=== PATIENT | female | born 1955 | race Caucasian/White ===

== ENCOUNTER → 2018-02-05 | Outpatient (CLI) | payer OTHER ==
--- NOTE | 2018-02-05 19:28 | CT ---
EXAMINATION TYPE: CT ChestAbdPelvis w con DATE OF EXAM: 02/05/2018 COMPARISON: NONE HISTORY: Weight loss and changes with WBC CT DLP: 420.2 mGycm Automated exposure control for dose reduction was used. CONTRAST: CT scan of the chest, abdomen and pelvis is performed with Oral Contrast and with IV Contrast, patien t injected with 87 mL of Isovue 300. FINDINGS: There is diffuse pulmonary emphysema. Heart size is normal. There is no mediastinal adenopathy. There are no hilar masses. There is no evidence of pleural effusion. There is no evidence of a pulmonary m ass. There is no pericardial effusion. Liver spleen pancreas gallbladder appear normal. Bile ducts are not dilated. There is no adrenal mass. Kidneys show satisfactory contrast opacification. There is no hydronephrosi s. I see no intestinal wall thickening. There are no dilated loops. Bladder appears normal. There is no retroperitoneal adenopathy. There is no sign of ascites. Abdominal aorta is atheromatous. I see no bony destructive process. There is bilateral L5 spondylolysis with a mild first-degree L5-S1 spondyl olisthesis. I see no compression fracture. Uterus is retroverted. IMPRESSION: Diffuse moderately severe pulmonary emphysema. Spondylolysis of L5 with mild first-degree L5-S1 spondylolisthesis. Negative CT scan of the abdomen and pelvis. Atherosclerotic vascular disease.
== END | disposition home or self-care (01) ==
LOC: RADCTMAIN 16:00
DX: J43.9 Emphysema, unspecified (principal); I25.10 Atherosclerotic heart disease of native coronary artery without angina pectoris
CPT/HCPCS: 71260; 74177; Q9967

== ENCOUNTER → 2019-05-21 | Outpatient (CLI) | payer OTHER ==
--- NOTE | 2019-05-21 16:30 | XR ---
Bilateral hands and bilateral wrists HISTORY: Pain 3 views of each hand and 4 views of each wrist submitted. Chondrocalcinosis is present in the bilateral wrists. Some remodeling present at the radiocarpal join ts. Alignment is maintained. Bone mineralization is reduced. No fracture or dislocation. 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
== END | disposition home or self-care (01) ==
LOC: RADXRMAIN 15:47
PROVIDERS: ATTEND Emergency Medicine
DX: M25.532 Pain in left wrist (principal); M25.531 Pain in right wrist; M79.642 Pain in left hand

== ENCOUNTER → 2021-03-14 | Outpatient (CLI) | payer MEDICARE, OTHER ==
--- NOTE | 2021-03-14 09:38 | CTL ---
EXAMINATION TYPE: CT Low Dose Lung DATE OF EXAM ORDERED: 03/14/2021 HISTORY: CT 2018. Lung cancer screening CT DLP: 31.[address] CTDI: 1.0 mGy Automated exposure control for dose reduction was used. SCREENING VISIT: Baseline COMPARISON: CT 2018 TECHNIQUE: Low dose computed tomography scan was performed through the chest at 1 mm thick sections a nd reconstructed images in the coronal plane at [address] DIAGNOSTIC QUALITY: Satisfactory FINDINGS: LUNG NODULES: None. LUNGS: COPD: Severity: Moderate to borderline severe underlying emphysematous change. Fibrosis: Severity: None Lymph nodes: None. Other findings: None RIGHT PLEURAL SPACE: Effusion: None Calcification: None Thickening: None Pneumothorax: None LEFT PLEURAL SPACE: Effusion: None Calcification: None Thickening: None Pneumothorax: None HEART: Heart Size: Normal Coronary calcification: Moderate to severe Pericardial effusion: None OTHER FINDINGS: Upper abdomen: None Bony thorax: Exaggerated curvature with mild spurring. Supraclavicular region: None Other: None IMPRESSION: Emphysematous change redemonstrated. No new nodules. CT LUNG RAD AND CT CHEST RECOMMENDATION: Lung-Rad 1 Negative: Continue annual screening with LDCT in 12 months. S Modifier (other clinically significant findings): S Fairly severe coronary artery calcification should be correlated with additional cardiac risk factors .
== END | disposition home or self-care (01) ==
LOC: RADCTMAIN 08:16
DX: Z12.2 Encounter for screening for malignant neoplasm of respiratory organs (principal); J43.9 Emphysema, unspecified
CPT/HCPCS: 71271

== ENCOUNTER 2021-04-24 13:09 | Observation (INO) | payer MEDICARE, OTHER ==
[2021-04-24] MEDS ORDERED: SODIUM CHLORIDE 0.9% 500 ML 500 ML IV STA (14:52)
--- NOTE | 2021-04-24 15:06 | ED ---
Weakness HPI - General Chief complaint: Weakness Stated complaint: weakness, neausea Source: patient, family, RN notes reviewed, old records reviewed Mode of arrival: ambulatory Limitations: no limitations - History of Present Illness Initial comments: 65-year-old white female, alert and oriented 4, presents to the emergency room with complaints of generalized weakness for the past week. Patient states that she had a low-dose CT in February 2021 which showed severe coronary artery calcifications. Patient denies any chest pain or shortness of breath but does state that she has COPD and has had increasing weakness over the past week. Patient states that she did have some chest tightness with her weakness Saturday but here for worsening shortness of breath over the past couple of days. She denies fevers, no change in sputum production or color. Patient states she is a half pack a day smoker but waste smokes. Complaint: generalized weakness -: week(s) (1) Location: generalized Severity scale (1-10): 0 Associated Symptoms: denies other symptoms - Related Data Allergies Allergy/AdvReac Type Severity Reaction Status Date / Time No Known Allergies Allergy Verified 04/24/21 13:48 Review of Systems ROS Statement: Those systems with pertinent positive or pertinent negative responses have been documented in the HPI. ROS Other: All systems not noted in ROS Statement are negative. Past Medical History Past Medical History: COPD, Hyperlipidemia, Hypertension History of Any Multi-Drug Resistant Organisms: None Reported Past Surgical History: Breast Surgery Past Psychological History: No Psychological Hx Reported Smoking Status: Current every day smoker Past Alcohol Use History: None Reported Past Drug Use History: None Reported General Exam Limitations: no limitations General appearance: alert, in no apparent distress Head exam: Present: atraumatic, normocephalic, normal inspection Eye exam: Present: normal appearance, PERRL, EOMI. Absent: scleral icterus, conjunctival injection, periorbital swelling ENT exam: Present: normal exam, mucous membranes moist Neck exam: Present: normal inspection, full ROM. Absent: tenderness, meningismus, lymphadenopathy, thyromegaly Respiratory exam: Present: normal lung sounds bilaterally, wheezes. Absent: respiratory distress, rales, rhonchi, stridor, chest wall tenderness, accessory muscle use Cardiovascular Exam: Present: regular rate, normal rhythm, normal heart sounds. Absent: systolic murmur, diastolic murmur, rubs, gallop, clicks GI/Abdominal exam: Present: soft, normal bowel sounds. Absent: distended, tenderness, guarding, rebound, rigid Extremities exam: Present: normal inspection, full ROM, normal capillary refill. Absent: tenderness, pedal edema, joint swelling, calf tenderness Back exam: Present: normal inspection, full ROM. Absent: tenderness, CVA tenderness (R), CVA tenderness (L), muscle spasm, paraspinal tenderness, vertebral tenderness Neurological exam: Present: alert, oriented X3, CN II-XII intact Psychiatric exam: Present: normal affect, normal mood Skin exam: Present: warm, dry, intact, normal color. Absent: rash, cyanosis, diaphoretic, erythema, petechiae, pallor, mottled Course Vital Signs 04/24/21 04/24/21 04/24/21 13:48 14:35 14:47 Temperature 97.9 F Pulse Rate 94 85 Pulse Rate [ 80 Bilateral Supine Radial] Respiratory 18 18 18 Rate Blood Pressure 104/60 123/70 O2 Sat by Pulse 94 L 91 L Oximetry 04/24/21 16:40 Temperature Pulse Rate 80 Pulse Rate [ Bilateral Supine Radial] Respiratory 18 Rate Blood Pressure 115/64 O2 Sat by Pulse 96 Oximetry EKG Findings - EKG Results: EKG: sinus rhythm (Ventricular rate of 82, KS interval of 0.110, QRS of 0.88, QTc of 0.425; no old EKG available) Medical Decision Making - Medical Decision Making Patient having generalized weakness for the past week worse over the past 2 days. Patient did say that she had some chest tightness on Saturday. Chest x-ray shows COPD but no infiltrates, no pleural effusion and no pneumothorax. WBC count is 10, troponin is negative at 0.012, magnesium is 2.5. EKG shows no ST elevation. UA shows urinary tract infection and patient was given a gram of Rocephin IV push. Patient is agreeable to staying for continued evaluation of her chest tightness and overall weakness. Case to discussed with Dr. Ash. Dr. Munoz notified of admission and will also consult cardiology.. Patient agreeable to admission - Lab Data Result diagrams: 04/24/21 15:06 04/24/21 15:06 Lab Results 04/24/21 04/24/21 04/24/21 Range/Units 15:06 15:06 15:06 WBC 10.0 (3.8-10.6) k/uL RBC 4.38 (3.80-5.40) m/uL Hgb 13.4 (11.4-16.0) gm/dL Hct 41.3 (34.0-46.0) % MCV 94.3 (80.0-100.0) fL MCH 30.7 (25.0-35.0) pg MCHC 32.5 (31.0-37.0) g/dL RDW 13.5 (11.5-15.5) % Plt Count 204 (150-450) k/uL MPV 8.1 Neutrophils % 91 % Lymphocytes % 5 % Monocytes % 3 % Eosinophils % 1 % Basophils % 0 % Neutrophils # 9.0 H (1.3-7.7) k/uL Lymphocytes # 0.5 L (1.0-4.8) k/uL Monocytes # 0.3 (0-1.0) k/uL Eosinophils # 0.1 (0-0.7) k/uL Basophils # 0.0 (0-0.2) k/uL PT 9.6 (9.0-12.0) sec INR 0.9 (<1.2) APTT 23.4 (22.0-30.0) sec Sodium (137-145) mmol/L Potassium (3.5-5.1) mmol/L Chloride (98-107) mmol/L Carbon Dioxide (22-30) mmol/L Anion Gap mmol/L BUN (7-17) mg/dL Creatinine (0.52-1.04) mg/dL Est GFR (CKD-EPI)AfAm (>60 ml/min/1.73 sqM) Est GFR (CKD-EPI)NonAf (>60 ml/min/1.73 sqM) Glucose (74-99) mg/dL Plasma Lactic Acid Jace (0.7-2.0) mmol/L Calcium (8.4-10.2) mg/dL Magnesium (1.6-2.3) mg/dL Total Bilirubin (0.2-1.3) mg/dL AST (14-36) U/L ALT (4-34) U/L Alkaline Phosphatase (38-126) U/L Troponin I (0.000-0.034) ng/mL Total Protein (6.3-8.2) g/dL Albumin (3.5-5.0) g/dL Urine Color Yellow Urine Appearance Cloudy H (Clear) Urine pH 6.0 (5.0-8.0) Ur Specific [place] 1.016 (1.001-1.035) Urine Protein 2+ H (Negative) Urine Glucose (UA) Negative (Negative) Urine Ketones Negative (Negative) Urine Blood Moderate H (Negative) Urine Nitrite Positive H (Negative) Urine Bilirubin Negative (Negative) Urine Urobilinogen 3.0 (<2.0) mg/dL Ur Leukocyte Esterase Large H (Negative) Urine RBC 6 H (0-5) /hpf Urine WBC 165 H (0-5) /hpf Urine WBC Clumps Few H (None) /hpf Ur Squamous Epith Cells 7 H (0-4) /hpf Urine Bacteria Many H (None) /hpf Urine Mucus Few H (None) /hpf 04/24/21 04/24/21 04/24/21 Range/Units 15:06 15:06 15:06 WBC (3.8-10.6) k/uL RBC (3.80-5.40) m/uL Hgb (11.4-16.0) gm/dL Hct (34.0-46.0) % MCV (80.0-100.0) fL MCH (25.0-35.0) pg MCHC (31.0-37.0) g/dL RDW (11.5-15.5) % Plt Count (150-450) k/uL MPV Neutrophils % % Lymphocytes % % Monocytes % % Eosinophils % % Basophils % % Neutrophils # (1.3-7.7) k/uL Lymphocytes # (1.0-4.8) k/uL Monocytes # (0-1.0) k/uL Eosinophils # (0-0.7) k/uL Basophils # (0-0.2) k/uL PT (9.0-12.0) sec INR (<1.2) APTT (22.0-30.0) sec Sodium 137 (137-145) mmol/L Potassium 3.9 (3.5-5.1) mmol/L Chloride 98 (98-107) mmol/L Carbon Dioxide 28 (22-30) mmol/L Anion Gap 11 mmol/L BUN 28 H (7-17) mg/dL Creatinine 0.77 (0.52-1.04) mg/dL Est GFR (CKD-EPI)AfAm >90 (>60 ml/min/1.73 sqM) Est GFR (CKD-EPI)NonAf 81 (>60 ml/min/1.73 sqM) Glucose 144 H (74-99) mg/dL Plasma Lactic Acid Jace 2.0 (0.7-2.0) mmol/L Calcium 8.8 (8.4-10.2) mg/dL Magnesium 2.5 H (1.6-2.3) mg/dL Total Bilirubin 0.6 (0.2-1.3) mg/dL AST 46 H (14-36) U/L ALT 26 (4-34) U/L Alkaline Phosphatase 108 (38-126) U/L Troponin I <0.012 (0.000-0.034) ng/mL Total Protein 6.9 (6.3-8.2) g/dL Albumin 3.6 (3.5-5.0) g/dL Urine Color Urine Appearance (Clear) Urine pH (5.0-8.0) Ur Specific [place] (1.001-1.035) Urine Protein (Negative) Urine Glucose (UA) (Negative) Urine Ketones (Negative) Urine Blood (Negative) Urine Nitrite (Negative) Urine Bilirubin (Negative) Urine Urobilinogen (<2.0) mg/dL Ur Leukocyte Esterase (Negative) Urine RBC (0-5) /hpf Urine WBC (0-5) /hpf Urine WBC Clumps (None) /hpf Ur Squamous Epith Cells (0-4) /hpf Urine Bacteria (None) /hpf Urine Mucus (None) /hpf Disposition Clinical Impression: Chest pain, Urinary tract infection Clinical Impression: (Ruled Out): Weakness Disposition: ADMITTED IP TO THIS HOSP Condition: Fair Referrals: [facility] [Primary Care Provider] - 1-2 days Decision Date: 04/24/21 Decision Time: 17:15
[2021-04-24 15:19] LABS: Basophils % (A) 0 %; Eosinophils # (A) 0.1 k/uL (0-0.7); Eosinophils % (A) 1 %; HCT 41.3 % (34.0-46.0); HGB 13.4 gm/dL (11.4-16.0); Lymphocytes # (A) 0.5 k/uL (1.0-4.8); Lymphocytes % (A) 5 %; MCH 30.7 pg (25.0-35.0); MCHC 32.5 g/dL (31.0-37.0); MCV 94.3 fL (80.0-100.0); Mean Platelet Volume 8.1; Monocytes # (A) 0.3 k/uL (0-1.0); Monocytes % (A) 3 %; Neutrophils % (A) 91 %; Platelet Count 204 k/uL (150-450); RBC 4.38 m/uL (3.80-5.40); RDW 13.5 % (11.5-15.5)
[2021-04-24 15:27] LABS: ALT 26 U/L (4-34); AST 46 U/L (14-36); African American GFR (CKD) >90 (>60 ml/min/1.73 sqM); Albumin 3.6 g/dL (3.5-5.0); Alkaline Phosphatase 108 U/L (38-126); Anion Gap 11 mmol/L; Blood Urea Nitrogen 28 mg/dL (7-17); Calcium 8.8 mg/dL (8.4-10.2); Carbon Dioxide 28 mmol/L (22-30); Chloride 98 mmol/L (98-107); Glucose 144 mg/dL (74-99); Magnesium 2.5 mg/dL (1.6-2.3); Non-African American GFR(CKD) 81 (>60 ml/min/1.73 sqM); Potassium 3.9 mmol/L (3.5-5.1); Sodium 137 mmol/L (137-145); Total Bilirubin 0.6 mg/dL (0.2-1.3); Total Protein 6.9 g/dL (6.3-8.2)
[2021-04-24 15:51] LABS: INR 0.9 (<1.2); Partial Thromboplastin Time 23.4 sec (22.0-30.0); Prothrombin Time 9.6 sec (9.0-12.0)
--- NOTE | 2021-04-24 16:04 | XR ---
EXAMINATION TYPE: XR chest 2V DATE OF EXAM: 04/24/2021 COMPARISON: NONE TECHNIQUE: PA and lateral views submitted. HISTORY: Weakness FINDINGS: The lungs are clear and there is no pneumothorax, pleural effusion, or focal pneumonia. Diffuse hyp erinflation. Heart size normal with no overt failure. Apical pleural thickening. Diffuse osteopenia a nd arthropathy of the shoulders and degenerative change spine. IMPRESSION: 1. No acute process. 2. COPD.
[2021-04-24 16:44] LABS: Appearance,Urine Cloudy (Clear); Bacteria,Urine Many /hpf; Bilirubin,Urine Negative (Negative); Blood,Urine Moderate (Negative); Color,Urine Yellow; Glucose,Urine (UA) Negative (Negative); Ketones,Urine Negative (Negative); Leukocyte Esterase,Urine Large (Negative); Mucus,Urine Few /hpf; Nitrite,Urine Positive (Negative); Protein,Urine 2+ (Negative); RBC,Urine 6 /hpf (0-5); Specific Gravity,Urine 1.016 (1.001-1.035); Squamous Epithelial Cell,Urine 7 /hpf (0-4); WBC,Urine 165 /hpf (0-5)
[2021-04-24] MEDS ORDERED: IPRATROPIUM-ALBUTEROL 3 ML NEB INHALATION STA (17:02)
[2021-04-24] MEDS ORDERED: cefTRIAXone IN SWFI 1,000 MG/10 ML SYRINGE IVP STA (17:07)
[2021-04-24] MEDS ORDERED: NALOXONE 0.4 MG/ML 1 ML VIAL IV PRN ×2 (17:17→18:44)
[2021-04-24] MEDS ORDERED: NICOTINE 21MG/24HR PATCH TRANSDERM STA (18:39)
[2021-04-24] MEDS: SODIUM CHLORIDE 0.9% 1,000 ML IV SCH (19:02)
[2021-04-25] MEDS ORDERED: REGADENOSON 0.4 MG/5 ML SYRINGE IV PRN (08:28)
[2021-04-25] MEDS ORDERED: CAFFEINE CITRATE 60 MG/3 ML VIAL IV PRN (08:28)
[2021-04-25] MEDS ORDERED: AMINOPHYLLINE 500 MG/20 ML VIAL IV PRN (08:28)
--- NOTE | 2021-04-25 10:35 | P.CRDCN ---
History of Present Illness History of present illness: HISTORY OF PRESENTING ILLNESS This is a pleasant 65-year-old female past medical history significant for COPD, hyperlipidemia, hypertension . 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 We have been asked to see in consultation for chest pain. Patient is seen and examined at bedside. She states she's been having midsternal chest pain. She describes it as a pressure and tightness, that is intermittent and comes and goes. It is non-exertional and nonradiating. She states the pain lasts for about a couple minutes and then resolves. She denies any alleviating factors. Taking a deep b reath worsens the pain and her chest pain is worsened with palpation. She does have generalized weakness for the past week. She denies palpitations, shortness of breath, lower extremity edema, lightheadedness, syncope. She denies symptoms of orthopnea or PND. She is a current smoker, smokes half pack a day. Denies alcohol or illicit drug use. Current home cardiac medications include lisinopril 40 mg daily, atorvastatin 40 mg nightly. DIAGNOSTICS EKG revealssinus rhythm with short MN, occasional PVCs, heart rate 82, no significant ST or T-wave abnormalities. EKG this morning revealed sinus rhythm, heart rate 78, nonspecific STT wave abnormalities. Telemetry tracings indicate sinus mechanism heart rate 70-80s Chest xray diffuse hyperinflation consistent with COPD, no acute process. Laboratory reviewed, CBC unremarkable, troponin negative 2, sodium 137, potassium 3.9, BUN 28, serum creatinine 0.77, magnesium 2.5, AST 46, ALT 26, UA is positive for UTI, COVID-19 negative REVIEW OF SYSTEMS At the time of my exam: CONSTITUTIONAL: +fever Denies chills. CARDIOVASCULAR: +chest pain, +shortness of breath Denies , orthopnea, PND or palpitations. RESPIRATORY: Denies cough. GASTROINTESTINAL: Denies abdominal pain, diarrhea, constipation, nausea or vomiting. MUSCULOSKELETAL: Denies myalgias. NEUROLOGIC: +Generalized weakness, Denies numbness, tingling, headacbe or weakness. ENDOCRINE: Denies fatigue, weight change, polydipsia or polyurina. GENITOURINARY: Denies burning, hematuria or urgency with micturation. HEMATOLOGIC: Denies history of anemia or bleeding. PHYSICAL EXAMINATION Blood pressure 113/64 heart rate82 Temp 100.1 F and maintaining oxygen saturation 98% on room air CONSTITUTIONAL: No apparent distress. HEENT: Head is normocephalic. Pupils are equal, round. Sclerae anicteric. Mucous membranes of the mouth are moist. No JVD. No carotid bruit. CHEST EXAMINATION: Lungs are clear to auscultation. No chest wall tenderness is noted on palpation or with deep breathing. HEART EXAMINATION: Regular rate and rhythm. S1, S2 heard. No murmurs, gallops or rub. ABDOMEN: Soft, nontender. Positive bowel sounds. EXTREMITIES: 2+ peripheral pulses, no lower extremity edema and no calf tenderness. SKIN: intact NEUROLOGIC EXAMINATION: Patient is awake, alert and oriented x3. ASSESSMENT Chest pain, atypical, acute coronary syndrome has been ruled out Hypertension Hyperlipidemia COPD Urinary tract infection PLAN An acute coronary event has been ruled out with no EKG evidence of ischemia and negative cardiac enzymes. Obtain 2D echocardiogram and doppler study to assess cardiac structure and function. Perform Lexiscan stress test to assess for stress induced cardiac ischemia. If abnormal will consider coronary angiography. If Lexiscan stress test negative and echocardiogram with no acute findings. Patient can be discharged from a cardiology perspective. Lipid panel Continue statin and Lisinopril Smoking cessation discussed and highly recommended. Follow up with Dr. Gomes Thank you kindly for this consultation. Nurse Practitioner note has been reviewed, I agree with a documented findings and plan of care. Patient was seen and examined. Past Medical History Past Medical History: COPD, Hyperlipidemia, Hypertension History of Any Multi-Drug Resistant Organisms: None Reported Past Surgical History: Breast Surgery Past Psychological History: No Psychological Hx Reported Smoking Status: Current every day smoker Past Alcohol Use History: None Reported Past Drug Use History: None Reported Medications and Allergies Home Medications Medication Instructions Recorded Confirmed Type Albuterol Inhaler [Ventolin Hfa 1 - 2 puff INHALATION RT-QID PRN 04/24/21 04/24/21 History Inhaler] Atorvastatin [Lipitor] 10 mg PO HS 04/24/21 04/24/21 History Budesonide/Formoterol Fumarate 2 puff INHALATION RT-BID 04/24/21 04/24/21 History [Symbicort 160-4.5 Mcg Inhaler] Ibuprofen [Motrin] 600 mg PO TID 04/24/21 04/24/21 History lisinopriL [Zestril] 40 mg PO DAILY 04/24/21 04/24/21 History traZODone HCL 150 mg PO HS 04/24/21 04/24/21 History Allergies Allergy/AdvReac Type Severity Reaction Status Date / Time No Known Allergies Allergy Verified 04/24/21 17:24 Physical Exam Vitals: Vital Signs Temp Pulse Pulse Resp BP BP Pulse Ox 04/25/21 02:00 99.3 F 83 20 125/77 97 04/25/21 01:30 16 04/25/21 00:29 99.4 F 93 24 111/69 98 04/24/21 19:00 96 18 115/64 94 L 04/24/21 17:33 84 04/24/21 17:29 95 18 95 04/24/21 17:24 92 04/24/21 16:40 80 18 115/64 96 04/24/21 14:47 85 18 123/70 91 L 04/24/21 14:35 80 18 04/24/21 13:48 97.9 F 94 18 104/60 94 L Intake and Output 04/24/21 04/25/21 04/25/21 22:59 06:59 14:59 Other: # Voids 1 2 Weight 39.916 kg Results 04/24/21 15:06 04/24/21 15:06 Cardiac Enzymes 04/24/21 04/24/21 04/25/21 Range/Units 15:06 15:06 02:55 AST 46 H (14-36) U/L Troponin I <0.012 <0.012 (0.000-0.034) ng/mL Coagulation 04/24/21 Range/Units 15:06 PT 9.6 (9.0-12.0) sec APTT 23.4 (22.0-30.0) sec CBC 04/24/21 Range/Units 15:06 WBC 10.0 (3.8-10.6) k/uL RBC 4.38 (3.80-5.40) m/uL Hgb 13.4 (11.4-16.0) gm/dL Hct 41.3 (34.0-46.0) % Plt Count 204 (150-450) k/uL Comprehensive Metabolic Panel 04/24/21 Range/Units 15:06 Sodium 137 (137-145) mmol/L Potassium 3.9 (3.5-5.1) mmol/L Chloride 98 (98-107) mmol/L Carbon Dioxide 28 (22-30) mmol/L BUN 28 H (7-17) mg/dL Creatinine 0.77 (0.52-1.04) mg/dL Glucose 144 H (74-99) mg/dL Calcium 8.8 (8.4-10.2) mg/dL AST 46 H (14-36) U/L ALT 26 (4-34) U/L Alkaline Phosphatase 108 (38-126) U/L Total Protein 6.9 (6.3-8.2) g/dL Albumin 3.6 (3.5-5.0) g/dL Current Medications Generic Name Dose Route Start Last Admin Trade Name Freq PRN Reason Stop Dose Admin Sodium Chloride 1,000 mls @ 50 mls/hr 04/24/21 17:30 04/24/21 19:02 Saline 0.9% IV 50 mls/hr .Q20H MARCELO Administration Naloxone HCl 0.2 mg 04/24/21 17:17 Naloxone 0.4 Mg/Ml 1 Ml Vial IV Q2M PRN Opioid Reversal Naloxone HCl 0.2 mg 04/24/21 18:44 Naloxone 0.4 Mg/Ml 1 Ml Vial IV Q2M PRN Opioid Reversal Intake and Output 04/24/21 04/25/21 04/25/21 22:59 06:59 14:59 Other: # Voids 1 2 Weight 39.916 kg 04/24/21 15:06 04/24/21 15:06
--- NOTE | 2021-04-25 11:20 | P.STRESS ---
- Stress Test Note Stress Test Results/Findings: Exam Performed: NM stress lexiscan cardiolite Exam Date: 04/25/21 Reason for Exam: CHEST PAIN Height: 5 ft 3 in Weight: 39.92 kg Protocol: LEXISCAN Stage: NA Duration of Exercise: NA Resting Heart Rate: 76 Resting Blood Pressure: 108/69 Maximum Achieved Heart Rate: 104 Maximum Achieved Blood Pressure: 126/66 85% PMHR: 132 100% PMHR: 155 METS: NA Technologist Comment: Stress Test Results/Findings: This is a 65-year-old female with history of hypertension and hypercholesterolemia and smoking history, was admitted to the hospital with chest pains. Stress data: Blood pressure at rest is 108/69, pulse rate of 76. Baseline EKG showed sinus rhythm with occasional PVCs and nonspecific ST-T changes. Blood pressure pressures 108/69, pulse rate of 76. A standard dose of Lexiscan was infused. EKGs taken during and after infusion did not reveal any changes from the baseline. Final impression: #1. Negative Lexiscan stress test #2. Report on the nuclear portion of the test to be provided by the radiologist
[2021-04-25] MEDS: SODIUM CHLORIDE 0.9% 1,000 ML IV SCH (11:33)
--- NOTE | 2021-04-25 12:30 | NM ---
EXAMINATION TYPE: NM stress lexiscan cardiolite DATE OF EXAM: 04/25/2021 COMPARISON: NONE HISTORY: Chest pain TECHNIQUE: After the intravenous administration of 9.75 mCi Tc 99m Sestamibi - Cardiolite resting SP ECT images acquired 25.6 minutes post injection. The patient received 0.4mg Lexiscan, 45 mCi Tc 99m Sestamibi - Stress images obtained 30 minutes post injection FINDINGS: Review of stress and rest SPECT images demonstrates no distinct reversible perfusion abnormality. Sma ll fixed defects involving the apex myocardium not excluded. Gated analysis shows normal wall motion with an estimated left ventricular ejection fraction of 70 %. IMPRESSION: No scintigraphic evidence for reversible ischemia. Tiny fixed defect involving the apex myocardium no t excluded. Correlate clinically.
[2021-04-25 15:16] VITALS: BMI 14.8
--- NOTE | 2021-04-25 17:00 | ECHOF ---
Referral Reason:LV function, chest pain MEASUREMENTS -------- HEIGHT: 160.0 cm WEIGHT: 39.9 kg BP: 113/65 RVIDd: 3.5 cm (< 3.3) IVSd: 1.2 cm (0.6 - 1.1) LVIDd: 3.0 cm (3.9 - 5.3) LVPWd: 1.3 cm (0.6 - 1.1) IVSs: 1.2 cm LVIDs: 1.8 cm LVPWs: 1.8 cm LAESV Index (A-L): 29.40 ml/m Ao Diam: 2.9 cm (2.0 - 3.7) AV Cusp: 2.1 cm (1.5 - 2.6) MV E Charan: 1.01 m/s MV DecT: 232 ms MV A Charan: 1.37 m/s MV E/A Ratio: 0.74 RAP: 20.00 mmHg RVSP: 50.88 mmHg FINDINGS -------- Sinus rhythm. This was a technically adequate study. The left ventricular size is normal. There is mild concentric left ventricular hypertrophy. Overa ll left ventricular systolic function is normal with, an EF between 55 - 60 %. The right ventricle is mildly enlarged. LA is midly dilated 29-33ml/m2. The right atrium is mildly enlarged. Interatrial and interventricular septum intact. There is mild aortic valve sclerosis. There is no evidence of aortic regurgitation. There is no e vidence of aortic stenosis. Mild mitral annular calcification present. [id number] mitral regurgitation is present. Augl-[id number] tricuspid regurgitation present. There is moderate pulmonary hypertension. The r ight ventricular systolic pressure, as measured by Doppler, is 50.88mmHg. There is no pulmonic regurgitation present. The aortic root size is normal. The inferior vena cava is dilated with poor inspiratory collapse which is consistent with estimated r ight atrial pressure of 20 mmHg. There is no pericardial effusion. CONCLUSIONS -------- 1. The left ventricular size is normal. 2. There is mild concentric left ventricular hypertrophy. 3. Overall left ventricular systolic function is normal with, an EF between 55 - 60 %. 4. The right ventricle is mildly enlarged. 5. LA is midly dilated 29-33ml/m2. 6. The right atrium is mildly enlarged. 7. There is mild aortic valve sclerosis. 8. Mild mitral annular calcification present. 9. Lmcl-nl-[id number] mitral regurgitation is present. 10. Xotu-ie-hchsamcd tricuspid regurgitation present. 11. There is moderate pulmonary hypertension. 12. The right ventricular systolic pressure, as measured by Doppler, is 50.88mmHg. 13. The inferior vena cava is dilated with poor inspiratory collapse which is consistent with estimat ed right atrial pressure of 20 mmHg. DIVIDEND DEPOSIT VOUCHER CLERK: Cami Bustamante RDCS
[2021-04-25 17:18] LABS: Chol/HDL Ratio 6.38; LDL Cholesterol,Calculated 43.8 mg/dL (0.0-131.0); VLDL Calculation 26.2 mg/dL (5.00-40.00)
[2021-04-25] MEDS: SYMBICORT 160-4.5 MCG INHALER INHALATION SCH (19:15)
[2021-04-25] MEDS: ATORVASTATIN 10 MG TAB PO SCH (20:58)
[2021-04-25] MEDS: traZODone HCL 100 MG TAB PO SCH (20:58)
[2021-04-26] MEDS ORDERED: ACETAMINOPHEN TAB 325 MG TAB PO PRN (01:36)
[2021-04-26] MEDS: SYMBICORT 160-4.5 MCG INHALER INHALATION SCH ×2 (07:38→20:05)
[2021-04-26] MEDS: IPRATROPIUM-ALBUTEROL 3 ML NEB INHALATION PRN ×2 (07:39→20:05)
[2021-04-26] MEDS: SODIUM CHLORIDE 0.9% 1,000 ML IV SCH (07:49)
--- NOTE | 2021-04-26 09:11 | P.HPIM ---
History of Present Illness H&P Date: 04/25/21 Patient is a pleasant 60-year-old female came in with compensative chest pain which is pressure-like sensation tightness intermittent comes and goes nonradiating last for about couple minutes patient chest pain does worsen with deep breathing and does does get worse with chest wall palpation. Patient chest pain is not associated shortness of breath palpitations or lightheadedness denied any diaphoresis denied any orthopnea proximal nocturnal dyspnea patient does smoke. Patient denied any cough fever chills patient chest pain it is not associated with food REVIEW OF SYSTEMS: CONSTITUTIONAL: No fever, no malaise, no fatigue. HEENT: No recent visual problems or hearing problems. Denied any sore throat. CARDIOVASCULAR: No orthopnea, PND, no palpitations, no syncope. PULMONARY: No shortness of breath, no cough, no hemoptysis. GASTROINTESTINAL: No diarrhea, no nausea, no vomiting, no abdominal pain. NEUROLOGICAL: No headaches, no weakness, no numbness. HEMATOLOGICAL: Denies any bleeding or petechiae. GENITOURINARY: Denies any burning micturition, frequency, or urgency. MUSCULOSKELETAL/RHEUMATOLOGICAL: Denies any joint pain, swelling, or any muscle pain. ENDOCRINE: Denies any polyuria or polydipsia. The rest of the 14-point review of systems is negative. PHYSICAL EXAMINATION: GENERAL: The patient is alert and oriented x3, not in any acute distress. Well developed, well nourished. HEENT: Pupils are round and equally reacting to light. EOMI. No scleral icterus. No conjunctival pallor. Normocephalic, atraumatic. No pharyngeal erythema. No thyromegaly. CARDIOVASCULAR: S1 and S2 present. No murmurs, rubs, or gallops. PULMONARY: Chest is clear to auscultation, no wheezing or crackles. ABDOMEN: Soft, nontender, nondistended, normoactive bowel sounds. No palpable organomegaly. MUSCULOSKELETAL: No joint swelling or deformity. EXTREMITIES: No cyanosis, clubbing, or pedal edema. NEUROLOGICAL: Gross neurological examination did not reveal any focal deficits. SKIN: No rashes. Assessment and plan -Chest pain: We will rule out acute coronary syndromes cardiology will evaluate the patient. Patient chest pain appears to be musculoskeletal atypical. -Hypertension patient is bit hypotensive today hold off on antiarrhythmic medications -Hyperlipidemia - DVT prophylaxis: Ambulation Past Medical History Past Medical History: COPD, Hyperlipidemia, Hypertension History of Any Multi-Drug Resistant Organisms: None Reported Past Surgical History: Breast Surgery Past Psychological History: No Psychological Hx Reported Smoking Status: Current every day smoker Past Alcohol Use History: None Reported Past Drug Use History: None Reported Medications and Allergies Home Medications Medication Instructions Recorded Confirmed Type Albuterol Inhaler [Ventolin Hfa 1 - 2 puff INHALATION RT-QID PRN 04/24/21 04/24/21 History Inhaler] Atorvastatin [Lipitor] 10 mg PO HS 04/24/21 04/24/21 History Budesonide/Formoterol Fumarate 2 puff INHALATION RT-BID 04/24/21 04/24/21 History [Symbicort 160-4.5 Mcg Inhaler] Ibuprofen [Motrin] 600 mg PO TID 04/24/21 04/24/21 History lisinopriL [Zestril] 40 mg PO DAILY 04/24/21 04/24/21 History traZODone HCL 150 mg PO HS 04/24/21 04/24/21 History Allergies Allergy/AdvReac Type Severity Reaction Status Date / Time carrot Allergy Unknown Verified 04/25/21 12:10 peas Allergy Unknown Verified 04/25/21 12:10 Physical Exam Vitals: Vital Signs Temp Pulse Pulse Pulse Resp BP Pulse Ox 04/26/21 07:51 82 04/26/21 07:41 78 04/26/21 06:51 98.0 F 58 L 18 95/62 100 04/26/21 02:00 103.0 F H 96 17 113/59 100 04/25/21 20:00 101.2 F H 99 18 108/62 94 L 04/25/21 14:15 99.9 F H 77 16 99/57 97 Intake and Output 04/25/21 04/26/21 04/26/21 22:59 06:59 14:59 Other: Voiding Method Toilet Toilet Toilet # Voids 1 1 Weight 37.9 kg Results CBC & Chem 7: 04/24/21 15:06 04/24/21 15:06 Labs: Abnormal Lab Results - Last 24 Hours (Table) 04/25/21 Range/Units 02:55 HDL Cholesterol 13.0 L (40.0-60.0) mg/dL Microbiology - Last 24 Hours (Table) 04/24/21 15:06 Urine Culture - Preliminary Urine,Voided Gram Neg Bacilli Thrombosis Risk Factor Assmnt - Choose All That Apply Any of the Below Risk Factors Present?: Yes Each Factor Represents 1 point: Abnormal pulmonary function (COPD), Serious lung disease incl. pneumonia (< 1month) Other Risk Factors: Yes Each Risk Factor Represents 2 Points: Age 61-74 years Other congenital or acquired thrombophilia - If yes, enter type in comment: No Thrombosis Risk Factor Assessment Total Risk Factor Score: 4 Thrombosis Risk Factor Assessment Level: Moderate Risk
[2021-04-26 11:17] LABS: African American GFR (CKD) 105.4 (60.0-200.0); Anion Gap 8.3 mmol/L (4.00-12.00); BUN/Creat Ratio 27.14 Ratio (12.00-20.00); Calcium 7.6 mg/dL (8.7-10.3); Carbon Dioxide 24.7 mmol/L (21.6-31.8); Non-African American GFR(CKD) 90.9 (60.0-200.0); Potassium 3.4 mmol/L (3.5-5.5)
[2021-04-26] MEDS ORDERED: POTASSIUM CHLORIDE ER 20 MEQ TAB.ER PO STA (11:29)
[2021-04-26 11:35] LABS: HCT 29.6 % (37.2-46.3); HGB 9.9 g/dL (12.0-15.0); MCH 31.3 pg (27.0-32.0); MCHC 33.4 g/dL (32.0-37.0); MCV 93.7 fL (80.0-97.0); Mean Platelet Volume 11.4 fL (9.5-12.2); Platelet Count 130 X 10*3/uL (140-440); RBC 3.16 X 10*6/uL (4.10-5.20); RDW 14.3 % (11.5-14.5); WBC 5.22 X 10*3/uL (4.50-10.00)
[2021-04-26] MEDS: DOCUSATE 100 MG CAP PO SCH ×2 (13:35→20:00)
--- NOTE | 2021-04-26 16:27 | P.PN ---
Subjective Patient is a pleasant 60-year-old female came in with compensative chest pain which is pressure-like sensation tightness intermittent comes and goes nonradiating last for about couple minutes patient chest pain does worsen with deep breathing and does does get worse with chest wall palpation. Patient chest pain is not associated shortness of breath palpitations or lightheadedness denied any diaphoresis denied any orthopnea proximal nocturnal dyspnea patient does smoke. Patient denied any cough fever chills patient chest pain it is not associated with food 04/26/2021 Patient had a stress test that was negative. Patient is feeling better today. Patient urine cultures are positive for gram-negative bacilli, once the cultures are finalized patient will be discharged at that time. Patient will be given Rocephin. Patient had fevers last night. Constitutional: As mentioned above Cardio vascular: denied any chest pain, palpitations Gastrointestinal denied any nausea vomiting Pulmonary: Denied any shortness of breath cough Neurologic denied any new focal deficits All inpatient medications were reviewed and appropriate changes in these medications as dictated in the interval history and assessment and plan. PHYSICAL EXAMINATION: GENERAL: The patient is alert and oriented x3, not in any acute distress. Well developed, well nourished. HEENT: Pupils are round and equally reacting to light. EOMI. No scleral icterus. No conjunctival pallor. Normocephalic, atraumatic. No pharyngeal erythema. No thyromegaly. CARDIOVASCULAR: S1 and S2 present. No murmurs, rubs, or gallops. PULMONARY: Chest is clear to auscultation, no wheezing or crackles. ABDOMEN: Soft, nontender, nondistended, normoactive bowel sounds. No palpable organomegaly. MUSCULOSKELETAL: No joint swelling or deformity. EXTREMITIES: No cyanosis, clubbing, or pedal edema. NEUROLOGICAL: Gross neurological examination did not reveal any focal deficits. SKIN: No rashes. Assessment and plan -Chest pain: We will rule out acute coronary syndromes cardiology will evaluate the patient. Patient chest pain appears to be musculoskeletal atypical. -Hypertension patient is bit hypotensive today hold off on antiarrhythmic medications -Hyperlipidemia -Urinary tract infection: Gram-negative bacilli in the urine patient will be continued on Rocephin Objective - Vital Signs Vital signs: Vital Signs Temp 98.8 F 04/26/21 13:53 Pulse 79 04/26/21 13:53 Resp 18 04/26/21 14:03 BP 99/61 04/26/21 13:53 Pulse Ox 99 04/26/21 13:53 Intake & Output 04/25/21 04/26/21 04/26/21 18:59 06:59 18:59 Intake Total 300 600 Balance 300 600 Weight 37.9 kg Intake: IV 300 600 Sodium Chloride 0.9% 1, 300 600 000 ml @ 50 mls/hr IV . Q20H [facility] Rx#:[id number] Other: Voiding Method Toilet Toilet # Voids 1 - Labs CBC & Chem 7: 04/26/21 06:22 04/26/21 06:22 Labs: Abnormal Lab Results - Last 24 Hours (Table) 04/25/21 04/26/21 04/26/21 Range/Units 02:55 06:22 06:22 RBC 3.16 L (4.10-5.20) X 10*6/uL Hgb 9.9 L (12.0-15.0) g/dL Hct 29.6 L (37.2-46.3) % Plt Count 130 L (140-440) X 10*3/uL Plt Count Comment DECREASED A Potassium 3.4 L (3.5-5.5) mmol/L BUN/Creatinine Ratio 27.14 H (12.00-20.00) Ratio Glucose 119 H (70-110) mg/dL Calcium 7.6 L (8.7-10.3) mg/dL HDL Cholesterol 13.0 L (40.0-60.0) mg/dL Microbiology - Last 24 Hours (Table) 04/24/21 15:06 Urine Culture - Preliminary Urine,Voided Gram Neg Bacilli
[2021-04-26] MEDS: ATORVASTATIN 10 MG TAB PO SCH (20:00)
[2021-04-26] MEDS: traZODone HCL 100 MG TAB PO SCH (20:00)
[2021-04-27] MEDS: SYMBICORT 160-4.5 MCG INHALER INHALATION SCH (07:57)
[2021-04-27 08:01] VITALS: BP 118/67; PULSE 82; RESP 20; TEMP 97.9
[2021-04-27] MEDS: DOCUSATE 100 MG CAP PO SCH (08:31)
--- NOTE | 2021-04-27 16:23 | P.DS ---
Providers Date of admission: 04/24/21 18:53 Attending physician: Rere Morales Consults: 04/24/21 17:18 Consult Physician Urgent Consulting Provider: Mak Scott Consult Reason/Comments: chest pain Do you want consulting provider notified?: Yes Primary care physician: [facility] Course: Patient is a pleasant 60-year-old female came in with compensative chest pain which is pressure-like sensation tightness intermittent comes and goes nonradiating last for about couple minutes patient chest pain does worsen with deep breathing and does does get worse with chest wall palpation. Patient chest pain is not associated shortness of breath palpitations or lightheadedness denied any diaphoresis denied any orthopnea proximal nocturnal dyspnea patient does smoke. Patient denied any cough fever chills patient chest pain it is not associated with food 04/26/2021 Patient had a stress test that was negative. Patient is feeling better today. Patient urine cultures are positive for gram-negative bacilli, once the cultures are finalized patient will be discharged at that time. Patient will be given Rocephin. Patient had fevers last night. 04/27/2021 x-ray and patient has a E. coli pansensitive patient will be discharged on Ceftin for 3 more days completing total 7 day of therapy. PHYSICAL EXAMINATION: GENERAL: The patient is alert and oriented x3, not in any acute distress. Well developed, well nourished. HEENT: Pupils are round and equally reacting to light. EOMI. No scleral icterus. No conjunctival pallor. Normocephalic, atraumatic. No pharyngeal erythema. No thyromegaly. CARDIOVASCULAR: S1 and S2 present. No murmurs, rubs, or gallops. PULMONARY: Chest is clear to auscultation, no wheezing or crackles. ABDOMEN: Soft, nontender, nondistended, normoactive bowel sounds. No palpable organomegaly. MUSCULOSKELETAL: No joint swelling or deformity. EXTREMITIES: No cyanosis, clubbing, or pedal edema. NEUROLOGICAL: Gross neurological examination did not reveal any focal deficits. SKIN: No rashes. Assessment and plan -Chest pain:ruled out acute coronary syndromes, patient had a stress test which was negative. Patient chest pain appears to be musculoskeletal atypical. -Hypertension patient is bit hypotensive today hold off on antidepressant medications patient blood pressure remains in low 100 systolic this may be secondary to urinary tract infection but patient was asked to check the blood pressure twice a day at home. Take it to primary care physician's office patient may not require any more antibiotics user may require a very small dose of YASMIN inhibitor. -Hyperlipidemia -Urinary tract infection: E. coli pansensitive Patient Condition at Discharge: Fair Plan - Discharge Summary Discharge Rx Participant: No New Discharge Prescriptions: New Cefuroxime Axetil [Ceftin] 500 mg PO BID 3 Days #6 tab Continue Budesonide/Formoterol Fumarate [Symbicort 160-4.5 Mcg Inhaler] 2 puff INHALATION RT-BID Albuterol Inhaler [Ventolin Hfa Inhaler] 1 - 2 puff INHALATION RT-QID PRN PRN Reason: Shortness Of Breath Ibuprofen [Motrin] 600 mg PO TID Atorvastatin [Lipitor] 10 mg PO HS traZODone HCL 150 mg PO HS Discontinued lisinopriL [Zestril] 40 mg PO DAILY Discharge Medication List Albuterol Inhaler [Ventolin Hfa Inhaler] 1 - 2 puff INHALATION RT-QID PRN 04/24/21 [History] Atorvastatin [Lipitor] 10 mg PO HS 04/24/21 [History] Budesonide/Formoterol Fumarate [Symbicort 160-4.5 Mcg Inhaler] 2 puff INHALATION RT-BID 04/24/21 [History] Ibuprofen [Motrin] 600 mg PO TID 04/24/21 [History] traZODone HCL 150 mg PO HS 04/24/21 [History] Cefuroxime Axetil [Ceftin] 500 mg PO BID 3 Days #6 tab 04/27/21 [Rx] Follow up Appointment(s)/Referral(s): Lilian Gomes MD [STAFF PHYSICIAN] - [facility] - 3 Days Discharge Disposition: HOME SELF-CARE
== END 2021-04-27 11:41 | disposition home or self-care (01) ==
LOC: EC 13:09 → 6NMEDSUR 18:53
PROVIDERS: ADMIT Hospitalist; ATTEND Hospitalist
DX: N39.0 Urinary tract infection, site not specified (principal); B96.20 Unspecified Escherichia coli [E. coli] as the cause of diseases classified elsewhere; R07.2 Precordial pain; Z20.822 Contact with and (suspected) exposure to COVID-19; E78.5 Hyperlipidemia, unspecified; I10 Essential (primary) hypertension; J44.9 Chronic obstructive pulmonary disease, unspecified; I25.10 Atherosclerotic heart disease of native coronary artery without angina pectoris; I95.9 Hypotension, unspecified; F17.210 Nicotine dependence, cigarettes, uncomplicated; I49.3 Ventricular premature depolarization; Z79.51 Long term (current) use of inhaled steroids; Z79.899 Other long term (current) drug therapy; Z91.018 Allergy to other foods; Z98.890 Other specified postprocedural states
CPT/HCPCS: 96365; 96366 ×2; 96375; 99285; 36415; 94640 ×5; 93005; 93017; 93306; 97161; 80061; 80053; 80048; 83605; 83735; 84484 ×2; 85025; 85027; 85610; 85730; 81001; 87040; 87086; 87077; 87186; 87635; 71046; 78452; G0378 ×4; A9500; S4990; J0696 ×4; J2785

== ENCOUNTER → 2021-10-03 | Outpatient (CLI) | payer OTHER ==
--- NOTE | 2021-10-04 11:18 | MM ---
Reason for exam: screening (asymptomatic). Last mammogram was performed 15 years and 8 months ago. History: Patient is postmenopausal. Physical Findings: A clinical breast exam by your physician is recommended on an annual basis and results should be correlated with mammographic findings. MG Screening Mammo w CAD Bilateral CC and MLO view(s) were taken. No prior studies available for comparison. The breast tissue is heterogeneously dense. This may lower the sensitivity of mammography. Finding: There are typically benign vascular calcifications in the left breast. There is no discrete abnormality. ASSESSMENT: Benign, BI-RAD 2 RECOMMENDATION: Routine screening mammogram of both breasts in 1 year.
== END | disposition home or self-care (01) ==
LOC: RADMAMWWP 07:10
DX: Z12.31 Encounter for screening mammogram for malignant neoplasm of breast (principal)
CPT/HCPCS: 77067

== ENCOUNTER → 2022-05-07 | Outpatient (CLI) | payer OTHER ==
--- NOTE | 2022-05-07 12:21 | CTL ---
EXAMINATION TYPE: CT Low Dose Lung DATE OF EXAM ORDERED: 05/07/2022 HISTORY: . Lung cancer screening CT DLP: 55.[address] CTDI: 1.6 mGy Automated exposure control for dose reduction was used. SCREENING VISIT: COMPARISON: 03/14/2021 TECHNIQUE: Low dose computed tomography scan was performed through the chest at 1 mm thick sections a nd reconstructed images in multiple planes at 1 mm and [address] DIAGNOSTIC QUALITY: Satisfactory FINDINGS: Diffuse emphysematous changes are again noted. There is no consolidative pneumonia. No pleural effusion or pneumothorax. No pleural calcifications. Aorta normal caliber with atheroscler otic changes. Coronary artery calcifications are seen. Heart size normal. There is a small hiatal her jimbo. Subsegmental changes involving the lung bases atelectasis. Posterior upper lobe and apical pleural th ickening noted. Kyphosis of the spine with degenerative changes and subsegmental changes are seen in the anterior segment of the left lower lobe likely inflammatory or atelectasis. There is a 2 mm nodule anterior segment left upper lobe axial image 159 retrospectively stable IMPRESSION: 1. COPD with stable-appearing 2 mm left upper lobe pulmonary nodule. 2 dense coronary artery calcific ation CT LUNG RAD AND CT CHEST RECOMMENDATION: Lung-Rad 2 Benign Appearance or Behavior: Continue annual sc reening with LDCT in 12 months. S Modifier (other clinically significant findings): S
== END | disposition home or self-care (01) ==
LOC: RADCTMAIN 10:39
DX: Z12.2 Encounter for screening for malignant neoplasm of respiratory organs (principal); Z87.891 Personal history of nicotine dependence
CPT/HCPCS: 71271

== ENCOUNTER 2022-10-31 09:17 | Day surgery (SDC) | payer OTHER ==
[2022-10-26 13:50] VITALS: BMI 21.0
[~2022-10-31 09:17] MED LIST: LACTATED RINGERS 1,000 ML IV SCH; LIDOCAINE 1% (10MG/ML) FOR IV START INTRADERMA PRN; ONDANSETRON 4 MG/2 ML VIAL IVP PRN
[2022-10-31 10:04] VITALS: RESP 16; TEMP 98.4
[2022-10-31] MEDS ORDERED: LIDOCAINE 2% INJ 20 MG/ML (2 ML VIAL) ONE (10:33)
[2022-10-31] MEDS ORDERED: PROPOFOL 10 MG/ML 20 ML VIAL IV ONE (10:33)
--- NOTE | 2022-10-31 10:58 | P.PCN ---
Date of Procedure: 10/31/22 Procedure(s) Performed: BRIEF HISTORY: Patient is a 67-year-old pleasant white female scheduled for an elective colonoscopy as a part of screening for colon cancer. PROCEDURE PERFORMED: Colonoscopy with snare polypectomy. PREOPERATIVE DIAGNOSIS: Screening for colon cancer. IV sedation per Anesthesia. PROCEDURE: After informed consent was obtained, the patient, was brought into the endoscopy unit. IV sedation was administered by Anesthesia under continuous monitoring. Digital rectal examination was normal. Initially the Olympus CF-160 flexible video colonoscope was then inserted in the rectum, gradually advanced into the cecum without any difficulty. Careful examination was performed as the scope was gradually being withdrawn. Ileocecal valve and the appendiceal orifice were visualized and appeared normal. Prep was excellent. Mucosa of the cecum, a 1 cm broad-based polyp removed by snare polypectomy. Rest of the ascending colon, transverse colon, descending colon, sigmoid colon, and rectum appeared normal. Retroflexion was performed in the rectum and no lesions were seen. The patient tolerated the procedure well. IMPRESSION: 1 cm cecal polyp status post polypectomy Rest of the colon appeared normal RECOMMENDATIONS: Findings of this examination were discussed with the patient as well as a family. She was advised to follow with the biopsy results. If the biopsy results adenoma she can have a repeat colonoscopy in 3 years.
[2022-10-31 11:19] VITALS: BP 148/78; PULSE 77
== END 2022-10-31 11:38 | disposition home or self-care (01) ==
LOC: ORWHC2ENDO 09:17
PROVIDERS: ATTEND Internal Medicine Gastroenterology
DX: Z12.11 Encounter for screening for malignant neoplasm of colon (principal); D12.0 Benign neoplasm of cecum; I10 Essential (primary) hypertension; E78.5 Hyperlipidemia, unspecified; J44.9 Chronic obstructive pulmonary disease, unspecified; Z87.891 Personal history of nicotine dependence; Z91.018 Allergy to other foods; Z79.83 Long term (current) use of bisphosphonates; Z79.51 Long term (current) use of inhaled steroids; Z79.1 Long term (current) use of non-steroidal anti-inflammatories (NSAID); Z79.02 Long term (current) use of antithrombotics/antiplatelets; Z79.899 Other long term (current) drug therapy
CPT/HCPCS: 88305; 45385; J2704; J2001

== ENCOUNTER → 2023-01-14 | Outpatient (CLI) | payer OTHER | END | disposition home or self-care (01) | LOC: LABPAT 11:58 | PROVIDERS: ATTEND Orthopaedic Surgery | DX: Z01.812 Encounter for preprocedural laboratory examination (principal); Z22.322 Carrier or suspected carrier of Methicillin resistant Staphylococcus aureus; M17.11 Unilateral primary osteoarthritis, right knee | CPT/HCPCS: 87070 ==

== ENCOUNTER 2023-03-26 10:30 | Day surgery (SDC) | payer OTHER ==
[2023-03-20 10:10] VITALS: BMI 21.2
--- NOTE | 2023-03-24 11:48 | P.HPOR ---
History of Present Illness H&P Date: 03/24/23 Chief Complaint: Right knee pain The patient is a 67-year-old [employer] employee who presents with progressive right knee pain for the past several years worsening recently. She notes severe pain with weightbearing activities. She has intermittent swelling. She has locking and buckling. She is having nighttime symptoms. She tried medications in addition to previous injections with only partial temporary relief. She has a history of right knee arthroscopy in the 80s. Review of Systems Negative except as in HPI Past Medical History Past Medical History: COPD, Hyperlipidemia, Hypertension, Osteoarthritis (OA) Additional Past Medical History / Comment(s): "BP has been better, off meds now". History of Any Multi-Drug Resistant Organisms: None Reported Past Surgical History: Breast Surgery, Orthopedic Surgery Additional Past Surgical History / Comment(s): Breast lumpectomy(can't remember which side), right knee arthroscopy. Past Anesthesia/Blood Transfusion Reactions: No Reported Reaction Past Psychological History: No Psychological Hx Reported Smoking Status: Former smoker Past Alcohol Use History: None Reported Additional Past Alcohol Use History / Comment(s): Quit smoking 06/20/21, had smoked since 18 yrs of age. Past Drug Use History: None Reported - Past Family History Mother Family Medical History: Cancer Additional Family Medical History / Comment(s): Lung cancer. Medications and Allergies Home Medications Medication Instructions Recorded Confirmed Type Atorvastatin [Lipitor] 10 mg PO HS 04/24/21 03/20/23 History traZODone HCL 150 mg PO HS 04/24/21 03/20/23 History Acetaminophen [Tylenol Arthritis] 650 mg PO DIRECTED PRN 10/26/22 03/20/23 History Albuterol Sulfate [Proair Hfa] 1 - 2 puff INHALATION QID PRN 10/26/22 03/20/23 History Ensure 1 can PO BID 10/26/22 03/20/23 History Meloxicam 7.5 mg PO HS 10/26/22 03/20/23 History Mometasone/Formoterol [Dulera 100 2 puff PO BID 10/26/22 03/20/23 History Mcg-5 Mcg Inhaler] Cholecalciferol [Vitamin D3 (25 25 mcg PO DAILY 03/20/23 03/20/23 History Mcg = 1000 Iu)] Allergies Allergy/AdvReac Type Severity Reaction Status Date / Time carrot Allergy Unknown Verified 03/20/23 09:55 peas Allergy Unknown Verified 03/20/23 09:55 Physical Examination - Knee right Appearance: effusion Effusion grade: trace Varus alignment in stance: 10 degrees Tenderness with palpation: anterior, medial Pain: throughout ROM Gait: limping ROM: extension: -10 degrees ROM: flexion: 100 degrees Crepitus with motion: Yes Strength: extension: 5/5 Strength: flexion: 5/5 Meniscal tests: medial meniscal tests: positive, medial joint line pain: positive Results The patient is a well-developed well-nourished female approximately 5 foot 3, 115 pounds of mesomorphic habitus. HEENT exam is nonfocal, neck is supple. She has painless passive motion of the right hip. Straight leg raise is negative. Her distal neurovascular appears intact in the right lower extremity. - Diagnostic results Knee x-ray: image reviewed (3 views of the right knee obtained in the office show severe tricompartmental osteoarthrosis with chondrocalcinosis.) Assessment and Plan Assessment: Right knee severe tricompartmental osteoarthrosis Right knee chondrocalcinosis COPD Plan: I talked with the patient with regarding her condition along with treatment options. At this point she is quite limited because of pain related to her right knee osteoarthrosis despite previous conservative measures. After thorough discussion she opted to proceed with surgery. We'll plan to proceed with right total knee arthroplasty. We will institute DVT prophylaxis postoperatively. Risks and benefits were discussed in layman's terms. She underwent preoperative pulmonary clearance.
[~2023-03-26 10:30] MED LIST changes: +ACETAMINOPHEN TAB 500 MG TAB PO PRN; +DEXAMETHASONE SOD PHOSPHATE 4 MG/ML 1 ML VIAL IV ONE; +HYDROmorphone 0.5 MG/0.5 ML SYRINGE IVP PRN; -LACTATED RINGERS 1,000 ML IV SCH; +MELOXICAM 7.5 MG TAB PO PRN; +MIDAZOLAM 2 MG/2 ML VIAL IV PRN; +ONDANSETRON 4 MG/2 ML VIAL IVP ONE; -ONDANSETRON 4 MG/2 ML VIAL IVP PRN; +TRANEXAMIC ACID IN NACL,ISO-OS 1,000 MG in SALINE 1 100ML.BAG IVPB PRN
[2023-03-26] MEDS ORDERED: LACTATED RINGERS 1,000 ML IV ONE ×4 (10:50→17:15)
[2023-03-26] MEDS ORDERED: MIDAZOLAM 2 MG/2 ML VIAL IVP ONE (11:35)
[2023-03-26] MEDS ORDERED: fentaNYL (PF) 50 MCG/ML 2 ML AMP ONE (12:36)
[2023-03-26] MEDS ORDERED: PROPOFOL 10 MG/ML 20 ML VIAL IV ONE (12:36)
[2023-03-26] MEDS ORDERED: DEXAMETHASONE SOD PHOSPHATE 4 MG/ML 1 ML VIAL ONE (12:36)
[2023-03-26] MEDS ORDERED: MIDAZOLAM 2 MG/2 ML VIAL ONE (12:36)
[2023-03-26] MEDS ORDERED: ROPIVACAINE 5 MG/ML 30 ML VIAL ONE (12:36)
[2023-03-26] MEDS ORDERED: TRANEXAMIC ACID IN NACL,ISO-OS 1,000 MG/100 ML BAG ONE (12:36)
[2023-03-26] MEDS ORDERED: ceFAZolin 3,000 MG in SODIUM CHLORIDE 0.9% IRRIGATIO 3,000 ML IRRIGATION ONE (13:14)
--- NOTE | 2023-03-26 13:35 | P.ANPRN ---
Procedure Note - Anesthesia - Nerve Block Performed Right Adductor Canal Infusion Time Out Performed: Yes Date of Procedure: 03/26/23 Procedure Start Time: 11:34 Procedure Stop Time: 11:44 Location of Patient: PreOp Indication: Acute Post-Operative Pain, Requested by Surgeon Sedation Type: Sedate with meaningful contact maintained Preparation: Sterile Prep, Sterile Dressing Position: Supine Catheter: Indwelling Needle Types: On-Q Needle Gauge: 21 Ultrasound used to visualize needle placement: Yes Ultrasound used to observe medication spread: Yes Blood Aspirated: No Pain Paresthesia on Injection Noted: No Resistance on Injection: Normal Image Stored and Saved: Yes Events: Uneventful and Well Tolerated (Ropivacaine 0.5% 20 mL plus dexamethasone 4 mg)
--- NOTE | 2023-03-26 13:36 | P.ANPRN ---
Procedure Note - Anesthesia - Nerve Block Performed Right Татьянаck Single Time Out Performed: Yes Date of Procedure: 03/26/23 Procedure Start Time: 11:45 Procedure Stop Time: 11:50 Location of Patient: PreOp Indication: Acute Post-Operative Pain, Requested by Surgeon Sedation Type: Sedate with meaningful contact maintained Preparation: Sterile Prep Position: Supine Needle Types: Pajunk Needle Gauge: 21 Ultrasound used to visualize needle placement: Yes Ultrasound used to observe medication spread: Yes Blood Aspirated: No Pain Paresthesia on Injection Noted: No Resistance on Injection: Normal Image Stored and Saved: Yes Events: Uneventful and Well Tolerated (Ropivacaine 0.5% 20 mL plus dexamethasone 4 mg)
[2023-03-26] MEDS ORDERED: NALOXONE 0.4 MG/ML 1 ML VIAL IV PRN (14:12)
[2023-03-26] MEDS ORDERED: HYDROcodone/APAP 5-325MG 1 EACH TAB PO PRN (14:12)
[2023-03-26] MEDS ORDERED: HYDROmorphone 0.5 MG/0.5 ML SYRINGE IVP PRN ×2 (14:12)
[2023-03-26] MEDS ORDERED: MAGNESIUM HYDROXIDE 2,400 MG/10 ML CUP PO PRN (14:12)
--- NOTE | 2023-03-26 14:31 | P.OP ---
Date of Procedure: 03/26/23 Preoperative Diagnosis: Right knee severe tricompartmental osteoarthrosis/chondrocalcinosis Postoperative Diagnosis: Same Procedure(s) Performed: Right total knee arthroplastycementedcruciate retaining Implants: Depuy Attune size 5 narrow cemented femoral component, size 4 cemented tibial component, 9 mm articular surface, 32 mm cemented patellar component. This was a cruciate retaining implant. Anesthesia: regional, spinal Surgeon: Paul Krueger Oss Architect #1: Patrick Dash Estimated Blood Loss (ml): 50 Pathology: none sent Condition: stable Disposition: PACU Indications for Procedure: The patient is a 67-year-old female who presents with progressive right knee pain secondary to osteoarthrosis and chondrocalcinosis despite conservative measures. He discussion of the risks and benefits of operative intervention versus continued conservative measures was made with patient. She opted to proceed with surgery. Operative risks to include infection, neurovascular injury, development of blood clots, fracture, component loosening/failure and possible need for subsequent procedures was discussed. Informed consent was obtained. Operative Findings: As below Description of Procedure: The patient was brought to the operating room, and after induction of spinal anesthesia the right lower extremity was prepped and draped in a normal fashion. The tourniquet was inflated to 270 mmHg. A longitudinal incision extending 3 finger breaths above the superior pole of the patella extending to the medial aspect the tibial tubercle was then made. The skin and subcutaneous tissues were divided sharply. Electrocautery was used for hemostasis. A medial parapatellar arthrotomy was then performed. The medial soft tissues to include the superficial and deep portions of the medial collateral ligament as well as the medial hamstring tendons were elevated subperiosteally. The proximal medial tibia osteophytes were carefully removed. The patella was everted. The knee was flexed. A portion of the retropatellar fat pad was excised sharply. The anterior cruciate ligament was sacrificed. A starting hole was made in the distal femur 1 cm anterior to the posterior cruciate origin. An intramedullary femoral guide was gently inserted planning on 5 valgus distal cut with 9 mm distal resection. The cutting block was pinned in place. The distal cut was th en made. The posterior referencing sizing guide was utilized. 3 of external rotation was built into the system and verified off the trans-epicondylar axis and the posterior condyles. I felt size 5 narrow was most appropriate. The cutting block was pinned in place. The anterior, posterior, and chamfer cuts were then made. The bone fragments were removed. A sulcus cut was then made with the appropriate guide. The trial size 5 narrow femoral component was then placed and was fully seated. There was good anterior to posterior and medial to lateral fit. The distal peg holes were then drilled. The trial component was then removed. Attention was then paid towards preparing the proximal tibia. An extra medullary guide was utilized in line with the tibial shaft and second metatarsal distally. A 7 posterior slope was planned. I planned on 2 mm resection from the medial compartment. The cutting block was pinned in place. The proximal tibial cut was then made. The bone was removed in one fragment. The remnants of the medial and lateral menisci were excised the capsule junction with electrocautery. The tibia sized most appropriately at size 4. The posterior osteophytes off the distal femur were carefully removed with a curved osteotome. The trial tibial and femoral components were placed along with a 9 millimeters articular surface. I was able to obtain full flexion and extension with good stability with varus and valgus stress. After several flexion and extension cycles, the tibial rotation was marked with electrocautery in line with the medial one third of the tibial tubercle. Attention was then paid towards preparing the patella. A patella reamer was utilized taking this down to 14 mm of bone stock. A good flush cut was made. The patella sized most appropriately at 32 millimeters. The peg holes were then drilled. The trial component was placed. The knee was taken through a range of motion. I had good patellofemoral tracking with no hands technique. The trial components were then removed. The tibia was prepared in the appropriate rotation with appropriate drill and keel punch. The flexion and extension gaps were checked and felt to be symmetric. The bony surfaces were prepared with pulsatile lavage and dried. The deep tibial component was then cemented in place and was fully seated. Excess cement was removed. The femoral component was cemented in place and was fully seated. Again excess cement was removed. The trial 9 millimeters surface was then inserted in the knee was put in full extension. The patella component was cemented in place. After the cement had sufficiently hardened, the knee was again taken through a range of motion. Again there was good stability in flexion and extension with varus and valgus stress. The trial articular surface was then removed. The final articular surface was placed and was impacted. Care was taken to avoid any soft tissue interposition. Pulsatile lavage was again utilized. The tourniquet was deflated with approximately 60 minutes total tourniquet time. There was minimal drainage therefore a deep drain was not placed. The medial parapatellar arthrotomy was then closed with #2 Ethibond suture. The subcutaneous tissues were reapproximated interrupted 2- 0 Vicryl sutures. The skin was reapproximated with 3-0 subarticular strata fix suture. Skin tape and adhesive was applied. A sterile dressing was applied. The patient was then awoken from sedation and transferred to recovery room in good condition. Blood loss was estimated at 50 milliliters. No complications were incurred. Sponge and needle counts were correct at the end the case. Patrick HERNANDEZ assisted during the major components this case to include exposure, bone resection, and implantation.
[2023-03-26] MEDS ORDERED: ROPIVACAINE 1,100 MG, SODIUM CHLORIDE 0.9% 500 ML 330 ML, EMPTY PAIN BALL 1 EACH MISCELLANE PRN ×2 (14:49)
--- NOTE | 2023-03-26 15:01 | XR ---
EXAMINATION TYPE: XR knee limited RT DATE OF EXAM: 03/26/2023 CLINICAL HISTORY: Postoperative evaluation Two views of the right knee are submitted. Identified are changes of total knee arthroplasty with femoral and tibial components appearing well seated. Postsurgical soft tissue changes are noted. Alignment is anatomic.
[2023-03-26] MEDS: LACTATED RINGERS 1,000 ML IV SCH (19:26)
[2023-03-26] MEDS ORDERED: SENNOSIDES-DOCUSATE SODIUM 1 EACH TAB PO SCH (21:00)
[2023-03-26] MEDS: HYDROcodone/APAP 5-325MG 1 EACH TAB PO PRN (21:48)
[2023-03-26 22:45] VITALS: RESP 18
[2023-03-27] MEDS ORDERED: traZODone HCL 50 MG TAB PO SCH (01:30)
--- NOTE | 2023-03-27 01:34 | P.CONS ---
History of Present Illness - Reason for Consult Consult date: 03/26/23 post op medical management - Chief Complaint right knee replacement - History of Present Illness 67 year old with copd not on home oxygen , presented for scheduled right total knee arthroplasty secondary to advanced OA. she tolerated procedure well, she walked post op on walker with assistance . denies any chest pain or trouble breathing, pain is controlled . denies any nausea vomiting, abd pain , fever, chills or headache. patient denies smoking Review of Systems Pertinent positives as noted in HPI. All other systems were reviewed and are negative Past Medical History Past Medical History: COPD, Hyperlipidemia, Hypertension, Osteoarthritis (OA) Additional Past Medical History / Comment(s): "BP has been better, off meds now". History of Any Multi-Drug Resistant Organisms: None Reported Past Surgical History: Breast Surgery, Orthopedic Surgery Additional Past Surgical History / Comment(s): Breast lumpectomy(can't remember which side), right knee arthroscopy., TRK 03/26/23 Past Anesthesia/Blood Transfusion Reactions: No Reported Reaction Past Psychological History: No Psychological Hx Reported Smoking Status: Former smoker Past Alcohol Use History: None Reported Additional Past Alcohol Use History / Comment(s): Quit smoking 06/20/21, had smoked since 18 yrs of age. Past Drug Use History: None Reported - Past Family History Mother Family Medical History: Cancer Additional Family Medical History / Comment(s): Lung cancer. Medications and Allergies Home Medications Medication Instructions Recorded Confirmed Type Atorvastatin [Lipitor] 10 mg PO HS 04/24/21 03/26/23 History traZODone HCL 150 mg PO HS 04/24/21 03/26/23 History Acetaminophen [Tylenol Arthritis] 650 mg PO DIRECTED PRN 10/26/22 03/26/23 History Albuterol Sulfate [Proair Hfa] 1 - 2 puff INHALATION QID PRN 10/26/22 03/26/23 History Ensure 1 can PO BID 10/26/22 03/26/23 History Meloxicam 7.5 mg PO HS 10/26/22 03/26/23 History Mometasone/Formoterol [Dulera 100 2 puff PO BID 10/26/22 03/26/23 History Mcg-5 Mcg Inhaler] Cholecalciferol [Vitamin D3 (25 25 mcg PO DAILY 03/20/23 03/26/23 History Mcg = 1000 Iu)] Allergies Allergy/AdvReac Type Severity Reaction Status Date / Time carrot Allergy Unknown Verified 03/26/23 10:52 peas Allergy Unknown Verified 03/26/23 10:52 Physical Exam Vitals: Vital Signs Temp Pulse Pulse Resp BP Pulse Ox 03/26/23 18:48 97.9 F 83 18 147/81 97 03/26/23 18:15 75 16 133/68 99 03/26/23 17:45 73 16 134/70 98 03/26/23 17:15 76 16 124/83 99 03/26/23 16:45 78 16 127/87 98 03/26/23 16:15 81 16 132/80 98 03/26/23 15:45 83 16 135/81 99 03/26/23 15:15 66 16 135/67 99 03/26/23 15:00 61 16 137/65 99 03/26/23 14:45 58 L 16 132/74 100 03/26/23 14:30 64 16 112/64 94 L 03/26/23 14:29 97.9 F 66 16 109/60 96 03/26/23 11:50 74 16 141/65 98 03/26/23 11:00 98.3 F 71 15 130/77 97 Intake and Output 03/26/23 03/26/23 03/27/23 14:59 22:59 06:59 Intake Total 1251 800 Output Total 50 Balance 1201 800 Intake: IV 1251 800 Output: Estimated Blood Loss 50 Other: Voiding Method Toilet Diaper # Voids 1 Weight 54.5 kg 54.5 kg Constitutional: No acute distress, conversant, pleasant Eyes: Anicteric sclerae, moist conjunctiva, Pupils equal round reactive to light ENMT: NC/AT Oropharynx clear, no erythema, or exudates Neck: Supple, no masses, or JVD No carotid bruits No thyromegaly Lungs: Clear to auscultation Clear to percussion Normal respiratory effort, no accessory muscle use Cardiovascular: Heart regular in rate and rhythm, No murmurs, gallops, or rubs No peripheral edema Abdominal: Soft Nontender, no guarding, rebound or rigidity Abdomen moving with respiration Normoactive bowel sounds No hepatomegaly, No splenomegaly No palpable mass No abdominal wall hernia noted Skin: Normal temperature, tone, texture, turgor No induration No subcutaneous nodules No rash, lesions No ulcers Extremities: No digital cyanosis No clubbing Pedal pulses intact and symmetrical Radial pulses intact and symmetrical No calf tenderness Psychiatric: Alert and oriented to person, place and time Appropriate affect fair judgement Neuro Muscles Strength 5/5 in all 4 extremities with some limitation over the right lower extremity due to post op status Sensation to light touch grossly present throughout Cranial nerves II-XII grossly intact Lymphatics: no palpable cervical or supraclavicular lymph nodes Assessment and Plan Assessment: s/p right total knee arthroplasty POD zero management per orthopedics COPD , compensated resume inhalers duonebs PRN symbicort BID supplemental oxygen as needed to keep oxygen sat > 92% encourage to use incentive spirometry check AM labs CBC, bmp stable from medical stand point thank you for this consultation
[2023-03-27] MEDS: SYMBICORT 80-4.5 MCG INHALER INHALATION SCH ×2 (05:28→08:48)
[2023-03-27] MEDS: LACTATED RINGERS 1,000 ML IV SCH (05:52)
--- NOTE | 2023-03-27 06:50 | P.PN ---
Progress Note - Text Progress Note Date: 03/27/23 Postoperative day # 1 status post total knee arthroplasty, and adductor canal catheter placed for postoperative analgesia, currently at ropivacaine 0.2% 8 mL per hour and continuous infusion, visual analogue scale is 3/10, patient using oral pain medication for breakthrough pain. Assessment and plan= Acute postoperative pain, adductor canal catheter for pain control, pain is well controlled we'll continue the same management.
[2023-03-27 07:26] VITALS: BP 125/71; PULSE 66; TEMP 97.6
[2023-03-27] MEDS ORDERED: RIVAROXABAN 10 MG TAB PO SCH (09:00)
[2023-03-27] MEDS: HYDROcodone/APAP 5-325MG 1 EACH TAB PO PRN (09:09)
--- NOTE | 2023-03-27 11:37 | P.PN ---
Subjective Progress Note Date: 03/27/23 Patient is a 67-year-old female with COPD not requiring home O2, hypertension, and dyslipidemia who presented for elective right total knee. Patient seen and examined at bedside. She denies any chest pain or significant shortness of breath. She has been up and ambulating on her own. She has no other complaints. Orthopedic presented to bedside during our encounter. Vital signs reviewed General: nontoxic, no distress, appears at stated age Cardiovascular: S1S2 reg, no murmur, positive posterior tibial pulse bilateral, Lungs: Decreased breath sounds bilateral, no rhonchi, no rales , no accessory muscle use Psych: Alert, oriented, appropriate affect Assessment: 67-year-old female status post right total knee arthroplasty COPD without exacerbation Hypertension Dyslipidemia Data Review: Vital signs reviewed temperature 97.6, pulse 66, respirations 18, blood pressure 125/71, O2 sat 99% on room air CBC currently pending Plan: -Await CBC Medically optimized for discharge if HgB stable. Home medication reconciliation addressed. Patient should follow up with [facility] in 1 week. Thank you for allowing us to participate in the care of this pleasant patient. Do not hesitate to contact us with questions. Someone can be reached from the [facility] hospitalist group all hours of the day at [phone] or via [employer]. This dictation was prepared using [employer] voice recognition software. Though every attempt is made to correct errors during during dictation some may still exist. Objective - Vital Signs Vital signs: Vital Signs Temp 97.6 F 03/27/23 07:05 Pulse 66 03/27/23 07:05 Resp 18 03/27/23 07:05 BP 125/71 03/27/23 07:05 Pulse Ox 96 03/27/23 08:50 FiO2 Intake & Output 03/26/23 03/27/23 03/27/23 18:59 06:59 18:59 Intake Total 2050 Output Total 50 Balance 2000 Weight 54.5 kg Intake: IV 2050 Output: Estimated Blood Loss 50 Other: Voiding Method Toilet Diaper # Voids 1 2
--- NOTE | 2023-03-27 11:44 | P.DS ---
Providers Date of admission: 03/26/2023 Expected date of discharge: 03/27/23 Attending physician: Paul Krueger Consults: 03/26/23 14:12 Consult Physician Routine Consulting Provider: Eunice Ortega Consult Reason/Comments: medical management s/p right total knee arthroplasty Do you want consulting provider notified?: Yes Primary care physician: [facility] Hospital Course: Date of admission: 03/26/2023 Date of discharge: 03/27/2023 Admission diagnosis: Right knee osteoarthritis Discharge diagnosis: Same Attending physician: Dr. Krueger Surgical procedures: Right total knee arthroplasty Brief history: Patient is a 63-year-old female with a history of progressive primary right knee osteoarthritis. At this point patient has failed conservative treatment measures and has opted to proceed with a elective right total knee arthroplasty. Hospital course: Details of patient's surgery can be found in operative report. Patient tolerated the procedure well and was subsequently transported to orthopedic floor. Patient's orthopeidc and medical care was provided daily. Patient had daily laboratory tests performed for evaluation of overall blood counts. Patient had daily physical therapy to include strengthening range of motion as well as education with walker ambulation. Patient was treated with Xarelto for their postoperative DVT prophylaxis during their inpatient stay. Patient was noted to have a relatively uneventful postoperative course. Patient reported satisfactory pain control with oral pain medications by postoperative day 1. Patient showed satisfactory progress with physical therapy. Patient moved steadily through the program and had no difficulty meeting the goals by postoperative day 1. Given patient's otherwise satisfactory course and having met physical therapy goals, plan is to discharge patient home with health services on postoperative day 1. Discharge condition/disposition: Patient will be discharged home with health services in stable condition. Discharge medications: Instructions are given on resumption of patient's normal daily medications per primary care recommendation, in addition patient will be prescribed Timblin; senna, eliquis Discharge instructions: 1. Wound care and infection precautions, keep incision dry and covered while showering, no lotions, creams, moisturizers. No soaking, tubs, pools, hottubs. Do not scrub over the incision. 2. Weight-bear as tolerated with walker / cane until follow-up. 3. Ice and elevate when necessary. Do not exceed 20 minutes per hour with ice pack. 4. Utilize compression sleeve until seen at first follow up appointment. 5. Visiting nursing care. 6. Home physical therapy. 7. Pain meds and anticoagulants per prescription. 8. Pain medication has potential to cause constipation. Increase oral fluid and fiber intake. Contact primary care provider if you have not had a bowel movement within 48 hours after discharge 9. No anti-inflammatory medication until discussed at first post operative visit, this including Motrin, Aleve, Mobic, Diclofenac. 10. Follow up in office at 2 weeks postop with Adrian Choudhury PA-C / Patrick Dash PA-C 11. Follow up with your primary care doctor 7-10 days after discharge. 12. Contact [facility] with any questions, . Keep incision clean, dry, intact. While showering, cover fusion tape was Saran wrap. Keep tape on until follow-up appointment in office in 2 weeks. Assessment: Right knee osteoarthritis Procedures: Right total knee arthroplasty Patient Condition at Discharge: Good Plan - Discharge Summary Discharge Rx Participant: No New Discharge Prescriptions: New Apixaban [Eliquis] 2.5 mg PO BID #60 tab Sennosides/Docusate Sodium [Senna Plus 8.6-50 mg Softgel] 1 each PO DAILY #20 capsule HYDROcodone/APAP 5-325MG [Timblin 5-325] 1 - 2 tab PO Q6HR PRN #36 tab PRN Reason: Pain Continue Albuterol Sulfate [Proair Hfa] 1 - 2 puff INHALATION QID PRN PRN Reason: Shortness Of Breath Atorvastatin [Lipitor] 10 mg PO HS traZODone HCL 150 mg PO HS Mometasone/Formoterol [Dulera 100 Mcg-5 Mcg Inhaler] 2 puff PO BID Cholecalciferol [Vitamin D3 (25 Mcg = 1000 Iu)] 25 mcg PO DAILY No Action Ensure 1 can PO BID Acetaminophen [Tylenol Arthritis] 650 mg PO DIRECTED PRN PRN Reason: Pain Meloxicam 7.5 mg PO HS Discharge Medication List Atorvastatin [Lipitor] 10 mg PO HS 04/24/21 [History] traZODone HCL 150 mg PO HS 04/24/21 [History] Acetaminophen [Tylenol Arthritis] 650 mg PO DIRECTED PRN 10/26/22 [History] Albuterol Sulfate [Proair Hfa] 1 - 2 puff INHALATION QID PRN 10/26/22 [History] Ensure 1 can PO BID 10/26/22 [History] Meloxicam 7.5 mg PO HS 10/26/22 [History] Mometasone/Formoterol [Dulera 100 Mcg-5 Mcg Inhaler] 2 puff PO BID 10/26/22 [History] Cholecalciferol [Vitamin D3 (25 Mcg = 1000 Iu)] 25 mcg PO DAILY 03/20/23 [History] Apixaban [Eliquis] 2.5 mg PO BID #60 tab 03/27/23 [Rx] HYDROcodone/APAP 5-325MG [Timblin 5-325] 1 - 2 tab PO Q6HR PRN #36 tab 03/27/23 [Rx] Sennosides/Docusate Sodium [Senna Plus 8.6-50 mg Softgel] 1 each PO DAILY #20 capsule 03/27/23 [Rx] Follow up Appointment(s)/Referral(s): Patrick Dash, PAC [PHYSICIAN HOUSE SUPERINTENDENT] - 04/12/23 2:10 pm [facility] [NON-STAFF] - As Needed [facility] [Primary Care Provider] - 1 Week Patient Instructions/Handouts: *[facility] - ([facility]) Arthroscopic Knee Post-Op Instructions, *Surgery [facility] - On-Q Pain Pump Discharge Instructions Activity/Diet/Wound Care/Special Instructions: Orthopedic Discharge Instructions: 1. Wound care and infection precautions, keep incision dry and covered while showering, no lotions, creams, moisturizers. No soaking, pools, hot tubs. Do not scrub over incision. 2. Weight-bear as tolerated with walker / cane until follow-up. 3. Ice and elevate when necessary. Do not exceed 20 minutes per hour with ice pack. 4. Utilize compression sleeve until seen at first follow up appointment. 5. Pain meds and anticoagulants per prescription. 6. Pain medication has potential to cause constipation. Increase oral fluid and fiber intake. Contact primary care provider if you have not had a bowel movement within 48 hours after discharge. 7. No anti-inflammatory medication until discussed at first post operative visit, this including Motrin, Aleve, Mobic, Diclofenac. 8. Follow up in office at 2 weeks postop with Adrian Choudhury PA-C / Patrick Dash PA-C 9. Follow up with your primary care doctor 7-10 days after discharge. 10. Contact [facility] with any questions, . Keep incision dry, intact. While showering, cover fusion tape with Saran wrap. Follow up in office in 2 weeks. Discharge Disposition: HOME WITH HOME HEALTH SERVICES
--- NOTE | 2023-03-27 12:55 | P.PN ---
Subjective Progress Note Date: 03/27/23 Principal diagnosis: Right knee osteoarthritis Patient was seen at bedside this morning sitting up in chair. Patient says she had just work with physical therapy and walk down the hallway and up stairs. Patient says she did do well. Patient says she has urinated since surgery. Patient says she has not had bowel movement yet, however, patient says she has been passing gas. Patient says pain is in the front of her knee. Patient says she is doing poorly going home today. Patient says she does have a walker for home. Patient denies chest pain, fever, shortness breath, nausea, vomiting, change in vision, loss of bowel/bladder control. Objective - Vital Signs Vital signs: Vital Signs Temp 97.6 F 03/27/23 07:05 Pulse 66 03/27/23 07:05 Resp 18 03/27/23 07:05 BP 125/71 03/27/23 07:05 Pulse Ox 96 03/27/23 08:50 FiO2 Intake & Output 03/26/23 03/27/23 03/27/23 18:59 06:59 18:59 Intake Total 2050 Output Total 50 Balance 2000 Weight 54.5 kg Intake: IV 2050 Output: Estimated Blood Loss 50 Other: Voiding Method Toilet Diaper # Voids 1 2 - Exam Right knee: Incision is clean, dry, and intact. The exofin fusion tape is in good condition. There is minimal soft tissue swelling and ecchymosis surrounding the medial and lateral aspects of the incision. Calf is soft, no tenderness with palpation. Plantar flexion, dorsiflexion, EHL, FHL are intact. Sensory exam to light touch throughout the extremity is intact, dorsal pedis pulses 2+. Assessment and Plan Assessment: 1. Right knee osteoarthritis - Postop day 1 status post right total knee arthroplasty Plan: 1. Right knee osteoarthritis - right total knee arthroplasty performed yesterday, 03/26/2023. Patient stable at bedside this morning. Patient does have a walker for home. Discharge home today with health services. 2. Appreciate medical management 3. Pain management - Henry 4. DVT prophylaxis - Xarelto in hospital. eliquis once home twice daily x 2 weeks 5. GI prophylaxis - senna 6. PT/OT - weightbearing as tolerated with walker as necessary 7. Encourage incentive spirometer use 8. Discharge planning - home with health services today. Time with Patient: Less than 30
[2023-03-27 14:02] LABS: Basophils # (A) 0.01 X 10*3/uL (0.00-0.10); Basophils % (A) 0.1 %; Eosinophils # (A) 0 X 10*3/uL (0.04-0.35); Eosinophils % (A) 0 %; HGB 11.1 g/dL (12.0-15.0); Immature Grans, Automated 0.4 %; Lymphocytes % (A) 13.1 %; MCH 31.8 pg (27.0-32.0); MCHC 31.7 g/dL (32.0-37.0); MCV 100.3 fL (80.0-97.0); Mean Platelet Volume 10.7 fL (9.5-12.2); Monocytes # (A) 0.79 X 10*3/uL (0.20-1.00); Monocytes % (A) 8.6 %; NRBC Per 100 WBC 0 /100 WBCS (0.0-0.0); Neutrophils % (A) 77.8 %; Platelet Count 213 X 10*3/uL (140-440); RBC 3.49 X 10*6/uL (4.10-5.20); RDW 12.9 % (11.5-14.5); WBC 9.14 X 10*3/uL (4.50-10.00)
[2023-03-27 14:51] LABS: African American GFR (CKD) 85.6 (60.0-200.0); Anion Gap 9.2 mmol/L (10.00-18.00); BUN/Creat Ratio 16.18 Ratio (12.00-20.00); Blood Urea Nitrogen 13.3 mg/dL (9.0-27.0); Calcium 8.5 mg/dL (8.7-10.3); Carbon Dioxide 27.2 mmol/L (20.0-27.5); Non-African American GFR(CKD) 73.8 (60.0-200.0); Potassium 4.5 mmol/L (3.5-5.5)
[2023-03-27] MEDS ORDERED: ATORVASTATIN 10 MG TAB PO SCH (21:00)
== END 2023-03-27 14:46 | disposition home health service (06) ==
LOC: OR 10:30 → 4SSUR 14:21 → OR 03-27 14:46
PROVIDERS: ATTEND Orthopaedic Surgery
DX: M17.11 Unilateral primary osteoarthritis, right knee (principal); M11.261 Other chondrocalcinosis, right knee; M25.761 Osteophyte, right knee; G89.18 Other acute postprocedural pain; J44.9 Chronic obstructive pulmonary disease, unspecified; I10 Essential (primary) hypertension; E78.5 Hyperlipidemia, unspecified; Z98.890 Other specified postprocedural states; Z87.891 Personal history of nicotine dependence; Z80.1 Family history of malignant neoplasm of trachea, bronchus and lung; Z79.51 Long term (current) use of inhaled steroids; Z79.899 Other long term (current) drug therapy
CPT/HCPCS: 94640; 94760; 97161; 64999; 64448; 80048; 85025; 73560; 27447; C1713 ×2; C1776; C1751; J2250; J1100; J0690 ×3; J2405; J2795; J1170 ×2

== ENCOUNTER → 2023-09-18 | Outpatient (CLI) | payer OTHER ==
--- NOTE | 2023-09-18 15:20 | CTL ---
EXAMINATION TYPE: CT Low Dose Lung DATE OF EXAM: 09/18/2023 2:43 PM CLINICAL INDICATION:Female, 68 years old with history of Z87.891 PERSONAL HISTORY OF NICOTINE DEPENDE NCE; former smoker, quit 3 years ago. 1 pack a day x 50 years. , history of tobacco use. COMPARISON: 05/07/2022. TECHNIQUE: Multiple axial non-contrast scans were obtained from approximately the lung apices through the upper abdomen. Coronal and sagittal reformatted images were obtained. Low dose technique was uti lized. CT DLP: 63.1 mGycm, Automated exposure control for dose reduction was used. CT Contrast: Contrast used: None Oral contrast used: None FINDINGS: ======== Lack of intravenous contrast and low dose technique limits the evaluation of the vascular and soft ti ssue structures. LUNGS: No evidence of pulmonary fibrosis. No evidence of focal consolidation, pneumothorax or pleural effusion. Moderate to severe centrilobular emphysema changes throughout the lungs. Nodules: RUL: None. RML: None. RLL: Scarring along the major fissure on the right series 4 image 117. [place]NE: None. LLL: Medial pleural-based parenchymal change series 4 image 200 measuring 4 mm. AIRWAY: Patent and unremarkable. HEART: Size within normal limits. Severe coronary artery atherosclerosis. MEDIASTINUM: No gross evidence of adenopathy. VASCULATURE: Atherosclerotic calcifications are present throughout the aorta and its branches. MUSCULOSKELETAL: No acute osseous abnormalities, increased kyphotic curvature to the spine. SOFT TISSUES/LYMPH NODES: Unremarkable. LOWER NECK: No significant findings. UPPER ABDOMEN: No significant findings. IMPRESSION: 1. No clinically significant pulmonary nodules. 2. Moderate to severe emphysema. CT LUNG RAD AND CT CHEST RECOMMENDATION: Lung-Rad 2 Benign Appearance or Behavior: Continue annual sc reening with LDCT in 12 months. S Modifier (other clinically significant findings): S - Severe coronary artery atherosclerosis. Recommend smoking cessation (if current smoker), or continuation of smoking cessation (if prior smoke r). Annual screening for lung cancer with low-dose computed tomography is recommended in adults ages 55 to 77 years who have a 30 pack-year smoking history and currently smoke or have quit within the pa st 15 years. Screening should be discontinued once a person has not smoked for 15 years or develops a health problem that substantially limits life expectancy or the ability or willingness to have curat gail lung surgery. Lung rads 2021 [email or web address]
== END | disposition home or self-care (01) ==
LOC: RADCTMAIN 13:53
PROVIDERS: ATTEND Family Medicine
DX: Z12.2 Encounter for screening for malignant neoplasm of respiratory organs (principal); J43.2 Centrilobular emphysema; Z87.891 Personal history of nicotine dependence
CPT/HCPCS: 71271

== ENCOUNTER → 2023-10-30 | Outpatient (CLI) | payer OTHER ==
--- NOTE | 2023-11-01 15:04 | MM ---
Reason for Exam: Screening (asymptomatic). Last mammogram was performed 2 year(s) and 1 month(s) ago. Patient History: Menarche at age 12. First Full-Term at age 21. Postmenopausal. Risk Values: Daxa 5 year model risk: 1.5%. NCI Lifetime model risk: 5.0%. Prior Study Comparison: 01/18/2006 Bilateral Screening Mammogram, [facility]. 10/03/2021 Bilateral Screening Mammogram, [facility]. Tissue Density: There are scattered fibroglandular densities. Findings: Analyzed By CAD. Pattern appears stable. There is focal asymmetry in the upper-outer aspect right breast. There is a new intermediate density focal asymmetry within the left mediolateral weakness is not evident on the prior study. Additional workup with compression mediolateral as well as a standard left mediolateral view is recommended. Right Breast: No suspicious groups of microcalcifications, spiculated or lobular masses, architectural distortion or other secondary signs of malignancy are mammographically apparent. Overall Assessment: Incomplete: need additional imaging evaluation, BI-RAD 0 Management: Diagnostic Mammogram of the left breast. A negative mammogram report should not preclude additional follow up of suspicious palpable abnormalities. Patient should continue monthly self breast exam. A clinical breast exam by your physician is recommended on an annual basis and results should be correlated with mammographic findings. Electronically signed and approved by: Jayjay Valdez D.O. Radiologis
== END | disposition home or self-care (01) ==
LOC: RADMAMWWP 11:36
DX: Z12.31 Encounter for screening mammogram for malignant neoplasm of breast (principal); Z78.0 Asymptomatic menopausal state
CPT/HCPCS: 77063; 77067

== ENCOUNTER → 2023-11-08 | Outpatient (CLI) | payer OTHER ==
--- NOTE | 2023-11-08 09:35 | MM ---
Reason for Exam: Additional evaluation requested from abnormal screening. Last screening mammogram was performed less than 1 month ago. Patient History: Menarche at age 12. First Full-Term at age 21. Postmenopausal. Risk Values: Daxa 5 year model risk: 1.5%. NCI Lifetime model risk: 5.0%. Prior Study Comparison: 01/18/2006 Bilateral Screening Mammogram, [facility]. 10/03/2021 Bilateral Screening Mammogram, [facility]. 10/30/2023 Bilateral MG 3D screening mammo w/cad, [facility]. Tissue Density: Left: The breast tissue is heterogeneously dense. This may lower the sensitivity of mammography. Findings: Analyzed By CAD. Pattern appears stable. Impression no persistent suspicious asymmetric density spiculated or lobulated mass is evident. Mediolateral view appears normal. No suspicious groups of microcalcifications, spiculated or lobular masses, architectural distortion or other secondary signs of malignancy are mammographically apparent. Overall Assessment: Benign, BI-RAD 2 Management: Screening Mammogram of both breasts in 1 year. A negative mammogram report should not preclude additional follow up of suspicious palpable abnormalities. Patient should continue monthly self breast exam. A clinical breast exam by your physician is recommended on an annual basis and results should be correlated with mammographic findings. Electronically signed and approved by: Jayjay Valdez D.O. Radiologis
== END | disposition home or self-care (01) ==
LOC: RADMAMWWP 08:52
DX: R92.332 Mammographic heterogeneous density, left breast (principal); Z78.0 Asymptomatic menopausal state
CPT/HCPCS: 77061; 77065

== ENCOUNTER 2023-12-27 18:36 | Emergency (ER) | payer OTHER ==
--- NOTE | 2023-12-27 18:58 | ED ---
General Adult HPI - General Source: patient, RN notes reviewed <Danielle Gan - Last Filed: 12/27/23 18:56> <Hernandez Ash - Last Filed: 12/28/23 04:27> - General Stated complaint: SOB, constipation, nausea and vomitting Time Seen by Provider: 12/27/23 18:56 - History of Present Illness Initial comments: Patient is a 68-year-old female presented ER with a chief complaint of shortness of breath. Patient states the past 3 days and she has been coughing up mucus. Denies any fevers or chills. (Danielle Gan) Patient is a 68-year-old female who presents emergency department complaining of weakness, shortness of breath, cough productive cough of white mucus. Denies any fevers or chills. Has some nausea but no emesis. Does have a history of COPD. Presents for further evaluation at this time. Has no other acute complaints at this time. Is seeking treatment. Originally evaluated as a quick note. I evaluated her when she placed in a hallway bed. Symptoms have been ongoing for the last 3 days. Denies any abdominal pain, chest pain, shortness of breath currently. Denies any urinary complaints. (Hernandez Ash) - Related Data Home Medications Medication Instructions Recorded Confirmed Atorvastatin [Lipitor] 10 mg PO HS 04/24/21 03/26/23 traZODone HCL 150 mg PO HS 04/24/21 03/26/23 Acetaminophen [Tylenol Arthritis] 650 mg PO DIRECTED PRN 10/26/22 03/26/23 Albuterol Sulfate [Proair Hfa] 1 - 2 puff INHALATION QID PRN 10/26/22 03/26/23 Ensure 1 can PO BID 10/26/22 03/26/23 Meloxicam 7.5 mg PO HS 10/26/22 03/26/23 Mometasone/Formoterol [Dulera 100 2 puff PO BID 10/26/22 03/26/23 Mcg-5 Mcg Inhaler] Cholecalciferol [Vitamin D3 (25 25 mcg PO DAILY 03/20/23 03/26/23 Mcg = 1000 Iu)] Previous Rx's Medication Instructions Recorded Apixaban [Eliquis] 2.5 mg PO BID #60 tab 03/27/23 HYDROcodone/APAP 5-325MG [[place] 1 - 2 tab PO Q6HR PRN #36 tab 03/27/23 5-325] Sennosides/Docusate Sodium [Senna 1 each PO DAILY #20 capsule 03/27/23 Plus 8.6-50 mg Softgel] Amoxic-Pot Clav 875-125Mg 1 tab PO BID 7 Days #14 tab 12/28/23 [Augmentin 875-125] predniSONE [Deltasone] 40 mg PO DAILY 5 Days #10 tab 12/28/23 Allergies Allergy/AdvReac Type Severity Reaction Status Date / Time carrot Allergy Unknown Verified 03/26/23 10:52 peas Allergy Unknown Verified 03/26/23 10:52 Review of Systems ROS Other: All systems not noted in ROS Statement are negative. <Danielle Gan - Last Filed: 12/27/23 18:56> ROS Other: All systems not noted in ROS Statement are negative. <Hernandez Ash - Last Filed: 12/28/23 04:27> ROS Statement: Those systems with pertinent positive or pertinent negative responses have been documented in the HPI. Review of Systems: CONST: Denies fever EYES: Denies blurry vision ENT: Endorses congestion C/V: Denies Chest pain RESP: Endorses productive cough GI: Denies abdominal pain : Denies dysuria SKIN: Denies rash. MSK: Denies joint pain. NEURO: Denies headache (Hernandez Ash) Past Medical History Past Medical History: COPD, Hyperlipidemia, Hypertension Additional Past Medical History / Comment(s): "BP has been better, off meds now". History of Any Multi-Drug Resistant Organisms: None Reported Past Surgical History: Breast Surgery Additional Past Surgical History / Comment(s): Breast lumpectomy(can't remember which side), right knee arthroscopy., TRK 03/26/23 Past Anesthesia/Blood Transfusion Reactions: No Reported Reaction Smoking Status: Current every day smoker - Past Family History Mother Family Medical History: Cancer Additional Family Medical History / Comment(s): Lung cancer. <Danielle Gan - Last Filed: 12/27/23 18:56> General Exam <Danielle Gan - Last Filed: 12/27/23 18:56> <Hernandez Ash - Last Filed: 12/28/23 04:27> - General Exam Comments Initial Comments: Visual Physical Exam Vital signs reviewed General: Well-appearing, nontoxic, no acute distress. Head: Normocephalic, atraumatic Eyes: PERRLA, EOMI ENT: Airway patent Chest: Nonlabored breathing Skin: No visual rash, normal skin tone Neuro: Alert and oriented 3 Musculoskeletal: No gross abnormalities (Danielle Gan) General: Appears in no acute distress. HEAD: Normal with no signs of head trauma. EYES: PERRLA, EOMI, conjunctiva normal, no discharge. ENT: Hearing grossly intact, normal oropharynx. RESPIRATORY: Mild end expiratory wheezing with mild central coarse breath sounds. No hypoxia. No increased work of breathing. C/V: Regular rate and rhythm. S1 and S2 auscultated, no edema, peripheral pulses 2+ and intact throughout ABD: Abd is soft, nontender, nondistended EXT: Normal range of motion, no obvious deformity SKIN: No rashes or lesions observed on exposed skin. NEURO: Alert and oriented x 4. (Hernandez Ash) Course Vital Signs 12/27/23 12/27/23 12/27/23 18:55 21:50 22:44 Temperature 98.2 F 97.6 F Pulse Rate 76 78 86 Respiratory 16 24 Rate Blood Pressure 138/90 117/69 O2 Sat by Pulse 98 98 Oximetry 12/27/23 22:54 Temperature Pulse Rate 88 Respiratory Rate Blood Pressure O2 Sat by Pulse Oximetry Medical Decision Making <Danielle Gan - Last Filed: 12/27/23 18:56> <Hernandez Ash - Last Filed: 12/28/23 04:27> - Medical Decision Making I performed the quick note portion of the exam. Electronically signed by Danielle Gan PA-C (Danielle Gan) Was pt. sent in by a medical professional or institution (DAVID Cunningham, ANALYTICAL CHEMISTRY TEACHER, urgent care, hospital, or shelter...) When possible be specific @ -No Did you speak to anyone other than the patient for history (EMS, parent, family, police, friend...)? What history was obtained from this source @ -No Did you review nursing and triage notes (agree or disagree)? Why? @ -I reviewed and agree with nursing and triage notes Were old charts reviewed (outside hosp., previous admission, EMS record, old EKG, old radiological studies, urgent care reports/EKG's, shelter records)? Report findings @ -Old charts reviewed Differential Diagnosis (chest pain, altered mental status, abdominal pain women, abdominal pain men, vaginal bleeding, weakness, fever, dyspnea, syncope, heada kendall, dizziness, GI bleed, back pain, seizure, CVA, palpatations, mental health, musculoskeletal)? @ -COVID, flu, RSV, UTI. This list is not all inclusive. EKG interpreted by me (3pts min.). @ -As above X-rays interpreted by me (1pt min.). @ -Chest x-ray reveals no evidence of acute cardiopulmonary process. CT interpreted by me (1pt min.). @ -None done U/S interpreted by me (1pt. min.). @ -None done What testing was considered but not performed or refused? (CT, X-rays, U/S, labs)? Why? @ -None What meds were considered but not given or refused? Why? @ -None Did you discuss the management of the patient with other professionals (professionals i.e. , PA, ANALYTICAL CHEMISTRY TEACHER, lab, RT, psych nurse, social media developer, senior lead java developer, teacher, police or patrol park officer, dependency case manager)? Give summary @ -No Was smoking cessation discussed for >3mins.? @ -No Was critical care preformed (if so, how long)? @ -No Were there social determinants of health that impacted care today? How? (Homelessness, low income, unemployed, alcoholism, drug addiction, transportation, low edu. Level, literacy, decrease access to med. care, shelter, rehab)? @ -No Was there de-escalation of care discussed even if they declined (Discuss DNR or withdrawal of care, Hospice)? DNR status @ -No What co-morbidities impacted this encounter? (DM, HTN, Smoking, COPD, CAD, Cancer, CVA, ARF, Chemo, Hep., AIDS, mental health diagnosis, sleep apnea, mor bid obesity)? @ -COPD Was patient admitted / discharged? Hospital course, mention meds given and route, prescriptions, significant lab abnormalities, going to OR and other pertinent info. @ -Based on the patient's presentation and physical exam, I am concerned for upper respiratory illness at this time. Patient does have a history of UTIs and we will obtain a urinalysis. Workup thus far is negative for any viral swabs, chest x-ray is also unremarkable. We will symptomatically treat with a shot of Solu-Medrol as well as a breathing treatment. Urinalysis will be obtained. Patient was in agreement this plan. Vital signs are within acceptable limits. No respiratory distress. Exam relatively unremarkable. Urinalysis returned unremarkable. Viral swabs negative. I discussed the workup with the patient. She is feeling improved at this time. We will treat her for tracheobronchitis considering her history of COPD. She was in agreement this plan. She will be given a dose of Augmentin as well as a prescription for Augmentin and prednisone. She already has breathing treatments at home and does not require refills. I instructed the patient to follow up with their PCP in the next 1-3 days.. I explained that the patient should return to the emergency department if they experience any worsening symptoms. Strict return precautions were discussed with the patient. The patient expressed understanding of these instructions. I answered all questions that the patient had. The patient was discharged home in [good] condition with their prescriptions and follow up information. Undiagnosed new problem with uncertain prognosis? @ -No Drug Therapy requiring intensive monitoring for toxicity (Heparin, Nitro, Insulin, Cardizem)? @ -No Were any procedures done? @ -No Diagnosis/symptom? @ -COPD, tracheobronchitis Acute, or Chronic, or Acute on Chronic? @ -Acute Uncomplicated (without systemic symptoms) or Complicated (systemic symptoms)? @ -Complicated Side effects of treatment? @ -None Exacerbation, Progression, or Severe Exacerbation] @ -No Poses a threat to life or bodily function? @ -Unlikely (Hernandez Ash) - Lab Data Lab Results 12/27/23 12/27/23 Range/Units 18:58 23:05 Urine Color Yellow Urine Appearance Cloudy H (Clear) Urine pH 7.5 (5.0-8.0) Ur Specific [place] 1.020 (1.001-1.035) Urine Protein Negative (Negative) Urine Glucose (UA) Negative (Negative) Urine Ketones Negative (Negative) Urine Blood Negative (Negative) Urine Nitrite Negative (Negative) Urine Bilirubin Negative (Negative) Urine Urobilinogen 3.0 (<2.0) mg/dL Ur Leukocyte Esterase Negative (Negative) Urine RBC 9 H (0-5) /hpf Urine WBC 1 (0-5) /hpf Ur Squamous Epith Cells 2 (0-4) /hpf Amorphous Sediment Rare H (None) /hpf Urine Bacteria Rare H (None) /hpf Urine Mucus Rare H (None) /hpf Influenza Type A (PCR) Not Detected (Not Detectd) Influenza Type B (PCR) Not Detected (Not Detectd) RSV (PCR) Not Detected (Not Detectd) SARS-CoV-2 (PCR) Not Detected (Not Detectd) Disposition <Danielle Gan - Last Filed: 12/27/23 18:56> Is patient prescribed a controlled substance at d/c from ED?: No Time of Disposition: 00:01 <Hernandez Ash - Last Filed: 12/28/23 04:27> Clinical Impression: Tracheobronchitis, COPD (chronic obstructive pulmonary disease) Disposition: HOME SELF-CARE Condition: Good Instructions (If sedation given, give patient instructions): Acute Bronchitis (ED) Prescriptions: Amoxic-Pot Clav 875-125Mg [Augmentin 875-125] 1 tab PO BID 7 Days #14 tab predniSONE [Deltasone] 40 mg PO DAILY 5 Days #10 tab Referrals: [facility],Clinic [Primary Care Provider] - 1-2 days
--- NOTE | 2023-12-27 19:32 | XR ---
EXAMINATION TYPE: XR chest 2V DATE OF EXAM: 12/27/2023 7:19 PM CLINICAL INDICATION:Female, 68 years old with history of dyspnea; H COMPARISON: Chest radiographs from 04/24/2021 TECHNIQUE: XR chest 2V Frontal and lateral views of the chest. FINDINGS: Lungs/Pleura: There is flattening of the diaphragm with increased lucency of the lungs. No evidence o f pneumothorax, pleural effusion or focal consolidation. Pulmonary vascularity: Unremarkable. Heart/mediastinum: Cardiomediastinal silhouette is unremarkable. Musculoskeletal: No acute osseous pathology. IMPRESSION: 1. No acute cardiopulmonary disease process. 2. COPD changes.
[2023-12-27 22:20] VITALS: BP 117/69; RESP 24; TEMP 97.6
[2023-12-27] MEDS: IPRATROPIUM-ALBUTEROL 3 ML NEB INHALATION STA (22:44)
[2023-12-27] MEDS: methylPREDNISolone SOD SUCCI 125 MG/2 ML VIAL IV STA (23:00)
[2023-12-27] MEDS: methylPREDNISolone SOD SUCCI 125 MG/2 ML VIAL IM ONE (23:01)
[2023-12-27 23:26] VITALS: PULSE 88
[2023-12-27 23:37] LABS: Amorphous Sediment,Urine Rare /hpf; Appearance,Urine Cloudy (Clear); Bacteria,Urine Rare /hpf; Bilirubin,Urine Negative (Negative); Blood,Urine Negative (Negative); Color,Urine Yellow; Glucose,Urine (UA) Negative (Negative); Ketones,Urine Negative (Negative); Leukocyte Esterase,Urine Negative (Negative); Mucus,Urine Rare /hpf; Nitrite,Urine Negative (Negative); PH, Urine 7.5 (5.0-8.0); Protein,Urine Negative (Negative); RBC,Urine 9 /hpf (0-5); Squamous Epithelial Cell,Urine 2 /hpf (0-4); WBC,Urine 1 /hpf (0-5)
[2023-12-28] MEDS: AMOXIC-POT CLAV 875-125MG 1 EACH TAB PO STA (00:10)
== END 2023-12-28 00:10 | disposition home or self-care (01) ==
LOC: EC 18:36
DX: J44.9 Chronic obstructive pulmonary disease, unspecified (principal); J40 Bronchitis, not specified as acute or chronic; E78.5 Hyperlipidemia, unspecified; I10 Essential (primary) hypertension; F17.200 Nicotine dependence, unspecified, uncomplicated; Z79.899 Other long term (current) drug therapy; Z20.822 Contact with and (suspected) exposure to COVID-19; Z79.51 Long term (current) use of inhaled steroids; Z88.8 Allergy status to other drugs, medicaments and biological substances
CPT/HCPCS: 99285; 96372; 94640; 81001; 87636; 71046; J2930

== ENCOUNTER 2024-10-30 10:22 | Observation (INO) | payer OTHER, MEDICARE ==
--- NOTE | 2024-10-30 10:36 | ED ---
General Adult HPI - General Stated complaint: Weakness Time Seen by Provider: 10/30/24 10:25 Source: patient, EMS Mode of arrival: EMS Limitations: no limitations - History of Present Illness Initial comments: Patient is a 69-year-old female presenting to the emergency department with concern for weakness. Onset of symptoms was prior to arrival. Patient was sitting down and felt odd sensation of her right arm and right leg. Patient did have some contraction of her right arm. Patient did have weakness of her right arm and right leg however that has resolved. Symptoms lasted around 5 minutes. No headache. No confusion. Patient is currently symptom-free. No history of similar symptoms previously. Patient does admit to having some shortness of breath however this is chronic from her COPD - Related Data Allergies Allergy/AdvReac Type Severity Reaction Status Date / Time carrot Allergy Unknown Verified 03/26/23 10:52 peas Allergy Unknown Verified 03/26/23 10:52 Review of Systems ROS Statement: Those systems with pertinent positive or pertinent negative responses have been documented in the HPI. ROS Other: All systems not noted in ROS Statement are negative. Constitutional: Denies: fever Eyes: Denies: eye pain ENT: Denies: ear pain Respiratory: Reports: as per HPI. Denies: cough Cardiovascular: Denies: chest pain Endocrine: Denies: fatigue Neurological: Reports: as per HPI. Denies: headache Past Medical History Past Medical History: COPD, Hyperlipidemia, Hypertension Additional Past Medical History / Comment(s): "BP has been better, off meds now". History of Any Multi-Drug Resistant Organisms: None Reported Past Surgical History: Breast Surgery Additional Past Surgical History / Comment(s): Breast lumpectomy(can't remember which side), right knee arthroscopy., TRK 03/26/23 Past Anesthesia/Blood Transfusion Reactions: No Reported Reaction Smoking Status: Current every day smoker - Past Family History Mother Family Medical History: Cancer Additional Family Medical History / Comment(s): Lung cancer. General Exam Limitations: no limitations General appearance: alert, in no apparent distress Head exam: Present: normocephalic Eye exam: Present: normal appearance, PERRL, EOMI Neck exam: Present: normal inspection Respiratory exam: Present: wheezes, decreased breath sounds Cardiovascular Exam: Present: regular rate, normal rhythm GI/Abdominal exam: Present: soft. Absent: tenderness Extremities exam: Present: normal inspection. Absent: pedal edema, calf tenderness Neurological exam: Present: alert, oriented X3, CN II-XII intact. Absent: motor sensory deficit Expanded Neurological exam: Present: protecting the airway Patient oriented to: Present: person, place, time Speech: Present: fluid speech Cranial nerves: EOM's Intact: Normal, Facial Sensation: Normal Sensory exam: Upper Extremity Light Touch: Normal, Lower Extremity Light Touch: Normal Motor strength exam: RUE: 5, LUE: 5, RLE: 5, LLE: 5 Eye Response: (4) open spontaneously Motor Response: (6) obeys commands Verbal Response: (5) oriented Psychiatric exam: Present: normal affect, normal mood Skin exam: Present: normal color Course Vital Signs 10/30/24 10/30/24 10:24 11:27 Temperature 97.6 F Pulse Rate 93 84 Respiratory 40 H Rate Blood Pressure 121/70 O2 Sat by Pulse 94 L Oximetry EKG Findings - EKG Results: EKG: interpreted by ERMD, sinus rhythm, normal axis, normal QRS, normal ST/T Medical Decision Making - Medical Decision Making Patient not considered a candidate for tenecteplase secondary to risk outweighing the benefits. Symptoms have resolved and NIH is 0. Was pt. sent in by a medical professional or institution (, PA, [employer]ING [employer], urgent care, hospital, or shelter...) When possible be specific @ -No Did you speak to anyone other than the patient for history (EMS, parent, family, police, friend...)? What history was obtained from this source @ -No Did you review nursing and triage notes (agree or disagree)? Why? @ -I reviewed and agree with nursing and triage notes Were old charts reviewed (outside hosp., previous admission, EMS record, old EKG, old radiological studies, urgent care reports/EKG's, shelter records)? Report findings @ -No old charts were reviewed Differential Diagnosis (chest pain, altered mental status, abdominal pain women, abdominal pain men, vaginal bleeding, weakness, fever, dyspnea, syncope, headache, dizziness, GI bleed, back pain, seizure, CVA, palpatations, mental health, musculoskeletal)? @ -Differential Weakness: Hypoglycemia, shock, sepsis, hyponatremia, anemia, infection, CA, ETOH, adverse medicine reaction, overdose, stroke, this is not meant to be an all-inclusive list. EKG interpreted by me (3pts min.). @ -As above X-rays interpreted by me (1pt min.). @ -Chest x-ray does not reveal acute process. Nodule. CT interpreted by me (1pt min.). @ -CT scan brain without acute abnormality U/S interpreted by me (1pt. min.). @ -None done What testing was considered but not performed or refused? (CT, X-rays, U/S, labs)? Why? @ -None What meds were considered but not given or refused? Why? @ -See above Did you discuss the management of the patient with other professionals (yoli pope i.e. , PA, [employer], lab, RT, psych nurse, social work administrator, admiralty lawyer, teacher, air antisubmarine officer, embedded case manager)? Give summary @ -Case discussed with practitioner Dany who will admit [facility], covering for this AL patient. Was smoking cessation discussed for >3mins.? @ -No Was critical care preformed (if so, how long)? @ -31 minutes critical care Were there social determinants of health that impacted care today? How? (Homelessness, low income, unemployed, alcoholism, drug addiction, transportation, low edu. Level, literacy, decrease access to med. care, residential, rehab)? @ -No Was there de-escalation of care discussed even if they declined (Discuss DNR or withdrawal of care, Hospice)? DNR status @ -No What co-morbidities impacted this encounter? (DM, HTN, Smoking, COPD, CAD, Cancer, CVA, ARF, Chemo, Hep., AIDS, mental health diagnosis, sleep apnea, morbid obesity)? @ -COPD history with wheeze Was patient admitted / discharged? Hospital course, mention meds given and route, prescriptions, significant lab abnormalities, going to OR and other pertinent info. @ -Patient presents with right sided weakness that has resolved. Code stroke called. Patient not considered candidate for tenecteplase. Patient will still be admitted with neurology consult. Admission orders written. Patient reevaluated and updated Undiagnosed new problem with uncertain prognosis? @ -No Drug Therapy requiring intensive monitoring for toxicity (Heparin, Nitro, Insulin, Cardizem)? @ -No Were any procedures done? @ -No Diagnosis/symptom? @ -TIA Acute, or Chronic, or Acute on Chronic? @ -Acute Uncomplicated (without systemic symptoms) or Complicated (systemic symptoms)? @ -Default Side effects of treatment? @ -No Exacerbation, Progression, or Severe Exacerbation? @ -No Poses a threat to life or bodily function? How? (Chest pain, USA, CA, pneumonia, PE, COPD, DKA, ARF, appy, cholecystitis, CVA, Diverticulitis, Homicidal, Suicidal, threat to staff... and all critical care pts) @ -Threat for neurological dysfunction - Lab Data Result diagrams: 10/30/24 10:32 10/30/24 10:32 Lab Results 10/30/24 10/30/24 10/30/24 Range/Units 10:32 10:32 10:32 WBC 6.0 (3.8-10.6) k/uL RBC 4.63 (3.80-5.40) m/uL Hgb 14.2 (11.4-16.0) gm/dL Hct 43.9 (34.0-46.0) % MCV 94.8 (80.0-100.0) fL MCH 30.7 (25.0-35.0) pg MCHC 32.3 (31.0-37.0) g/dL RDW 12.7 (11.5-15.5) % Plt Count 175 (150-450) k/uL MPV 7.2 Neutrophils % 48 % Lymphocytes % 40 % Monocytes % 7 % Eosinophils % 1 % Basophils % 1 % Neutrophils # 2.9 (1.3-7.7) k/uL Lymphocytes # 2.4 (1.0-4.8) k/uL Monocytes # 0.4 (0-1.0) k/uL Eosinophils # 0.1 (0-0.7) k/uL Basophils # 0.0 (0-0.2) k/uL PT 10.5 (10.0-12.5) sec INR 0.9 (<1.2) APTT 21.9 L (22.0-30.0) sec Sodium 140 (137-145) mmol/L Potassium 4.3 (3.5-5.1) mmol/L Chloride 105 (98-107) mmol/L Carbon Dioxide 25 (22-30) mmol/L Anion Gap 10 mmol/L BUN 17 (7-17) mg/dL Creatinine 0.87 (0.52-1.04) mg/dL Est GFR (CKD-EPI)AfAm 79 (>60 ml/min/1.73 sqM) Est GFR (CKD-EPI)NonAf 68 (>60 ml/min/1.73 sqM) Glucose 119 H (74-99) mg/dL Calcium 9.4 (8.4-10.2) mg/dL Total Bilirubin 0.6 (0.2-1.3) mg/dL AST 22 (14-36) U/L ALT 12 (4-34) U/L Alkaline Phosphatase 65 (38-126) U/L Creatine Kinase 52 (30-135) U/L Total Protein 7.4 (6.3-8.2) g/dL Albumin 4.4 (3.5-5.0) g/dL Disposition Clinical Impression: Transient cerebral ischemia Disposition: ADMITTED IP TO THIS HOSP Is patient prescribed a controlled substance at d/c from ED?: No Referrals: [facility],Clinic [Primary Care Provider] - 1-2 days Time of Disposition: 11:43
[2024-10-30 10:38] LABS: Basophils % (A) 1 %; Eosinophils # (A) 0.1 k/uL (0-0.7); Eosinophils % (A) 1 %; HCT 43.9 % (34.0-46.0); HGB 14.2 gm/dL (11.4-16.0); Lymphocytes # (A) 2.4 k/uL (1.0-4.8); Lymphocytes % (A) 40 %; MCH 30.7 pg (25.0-35.0); MCHC 32.3 g/dL (31.0-37.0); MCV 94.8 fL (80.0-100.0); Mean Platelet Volume 7.2; Monocytes # (A) 0.4 k/uL (0-1.0); Monocytes % (A) 7 %; Neutrophils # (A) 2.9 k/uL (1.3-7.7); Neutrophils % (A) 48 %; Platelet Count 175 k/uL (150-450); RBC 4.63 m/uL (3.80-5.40); RDW 12.7 % (11.5-15.5)
[2024-10-30 10:53] LABS: ALT 12 U/L (4-34); AST 22 U/L (14-36); African American GFR (CKD) 79 (>60 ml/min/1.73 sqM); Albumin 4.4 g/dL (3.5-5.0); Alkaline Phosphatase 65 U/L (38-126); Anion Gap 10 mmol/L; Blood Urea Nitrogen 17 mg/dL (7-17); Calcium 9.4 mg/dL (8.4-10.2); Carbon Dioxide 25 mmol/L (22-30); Chloride 105 mmol/L (98-107); Creatine Kinase 52 U/L (30-135); Glucose 119 mg/dL (74-99); Non-African American GFR(CKD) 68 (>60 ml/min/1.73 sqM); Potassium 4.3 mmol/L (3.5-5.1); Sodium 140 mmol/L (137-145); Total Bilirubin 0.6 mg/dL (0.2-1.3); Total Protein 7.4 g/dL (6.3-8.2)
--- NOTE | 2024-10-30 10:54 | CT ---
Head CT without contrast HISTORY: Code stroke. COMPARISON: None TECHNIQUE: Multiple axial images obtained skull base to vertex without the use of IV contrast materia l FINDINGS: The ventricles, basal cisterns and sulci over the convexities are moderately enlarged consistent with moderate generalized atrophy appropriate for the patient's age. There is no mass effect or shift of the midline structures. No abnormal density is seen throughout the brain parenchyma and there is no acute intra or extra-axia l hemorrhage. The posterior fossa including the brainstem, fourth ventricle and cerebellar pontine angles appear no rmal. Intraorbital contents appear normal and symmetric. Visualized paranasal sinuses and mastoid air cells are well aerated. The calvarium is intact. IMPRESSION: 1. Moderate age-appropriate atrophy. 2. There is no acute bleed or mass effect. [facility], Workstation: [email or web address] 10/30/2024 10:52 AM
[2024-10-30 11:07] LABS: INR 0.9 (<1.2); Partial Thromboplastin Time 21.9 sec (22.0-30.0); Prothrombin Time 10.5 sec (10.0-12.5)
--- NOTE | 2024-10-30 11:08 | XR ---
EXAMINATION TYPE: XR chest 2V DATE OF EXAM: 10/30/2024 10:59 AM COMPARISON: 12/27/2023 CLINICAL INDICATION: Female, 69 years old with confusion, history of altered mental status, , TECHNIQUE: AP and lateral views FINDINGS: Heart borderline in size. Hyperinflation with increased retrosternal clear space and a central to mid thoracic kyphosis. Large appearance to the left main pulmonary artery on the lateral view. No consol idation or pleural effusion. Possible subtle nodular density right midlung. IMPRESSION: 1. COPD and possible pulmonary arterial hypertension. 2. Subtle nodular density at the right midlung could represent summation artifact or an underlying pu lmonary nodule. Recommend reassessment at the time of the patient's routine lung cancer screening CT. 3. Otherwise, no definite acute process. [facility], , 10/30/2024 11:06 AM
--- NOTE | 2024-10-30 11:16 | CT ---
EXAMINATION TYPE: CT angio head neck DATE OF EXAM: 10/30/2024 COMPARISON: CLINICAL INDICATION: Female, 69 years old with history of Neuro deficit, acute, stroke suspected; PHH , RT arm weakness and numbness for 5 mins, now resolved TECHNIQUE: CTA scan of the head and neck is performed with IV Contrast, patient injected with 65ml m L of Isovue 370, axial images are obtained, coronal and sagittal reformatted images are reviewed. 3D reconstructed images are created on an independent workstation and reviewed. 3-D postprocessing was p erformed. CT DLP: 326.[address] CTDI: mGy Automated exposure control for dose reduction was used. NASCET criteria was used in interpretation of this exam? FINDINGS: FINDINGS: The brachiocephalic origins are widely patent and no significant stenosis. There are mild scattered c alcified atherosclerotic plaques. There is no significant stenosis of the common or internal carotid arteries within the neck. There is no stenosis of the vertebral arteries. There are mild scattered calcified arteriosclerotic plaques i nvolving the carotid bifurcations. Intracranially, there is no stenosis, segmental occlusion, sizable aneurysm sac or vascular malformat ion. There is mild atherosclerotic plaque involving the carotid siphons. IMPRESSION:. Mild scattered calcified arteriosclerotic plaques as described above. No significant harry nosis, aneurysm, segmental occlusion or vascular malformations. NASCET criteria was used in interpretation of this exam? [facility], Workstation: [email or web address] 10/30/2024 11:13 AM
[2024-10-30] MEDS: IPRATROPIUM-ALBUTEROL 3 ML NEB INHALATION STA (11:27)
[2024-10-30] MEDS: ASPIRIN 325 MG TAB PO STA (12:26)
[2024-10-30] MEDS: SODIUM CHLORIDE 0.9% 1,000 ML IV SCH (12:26)
--- NOTE | 2024-10-30 14:57 | P.CNNES ---
History of Present Illness Consult date: 10/30/24 Requesting physician: Saw Tidwell Reason for Consult: tia History of Present Illness: This is a 69-year-old who presented emergency department because of numbness tingling over the right upper and lower extremity. Patient stated that today she woke up early in the morning and she was doing fine but by 9:50 AM today she had numbness and tingling over the right upper and lower extremity and she felt was started in the leg and went up to the arm and she could not stand up. Denies any speech difficulty, visual disturbance. She does not have any history of stroke. She does have underlying history of hypertension and emphysema. She denies being on any antiplatelet. She denies history of A-fib or flutter. Some of the workup during this hospital visit consisted of: I reviewed the lab workup CT of the head is reported as moderate age-appropriate atrophy. There is no acute bleed or mass effect. I personally reviewed the CT and agree with the report CT angiography of the head and neck is reported as mild scattered calcified atherosclerotic plaque as described above. No significant stenosis, aneurysm, segmental occlusion or vascular malformation. Review of Systems As per HPI Past Medical History Past Medical History: COPD, Hyperlipidemia, Hypertension Additional Past Medical History / Comment(s): "BP has been better, off meds now". History of Any Multi-Drug Resistant Organisms: None Reported Past Surgical History: Breast Surgery Additional Past Surgical History / Comment(s): Breast lumpectomy(can't remember which side), right knee arthroscopy., TRK 03/26/23 Past Anesthesia/Blood Transfusion Reactions: No Reported Reaction Smoking Status: Current every day smoker - Past Family History Mother Family Medical History: Cancer Additional Family Medical History / Comment(s): Lung cancer. Medications and Allergies Home Medications Medication Instructions Recorded Confirmed Type Atorvastatin [Lipitor] 10 mg PO HS 10/30/24 10/30/24 History Brimonidine Tartrate/Timolol 1 drop BOTH EYES BID 10/30/24 10/30/24 History [Combigan 0.2%-0.5% Eye Drops] Ibuprofen [Motrin] 400 mg PO Q8HR PRN 10/30/24 10/30/24 History Ipratropium-Albuterol Nebulize 3 ml INHALATION RT-QID PRN 10/30/24 10/30/24 History [Duoneb 0.5 mg-3 mg/3 ml Soln] Latanoprost [Latanoprost 0.005%] 1 drop BOTH EYES HS 10/30/24 10/30/24 History Mometasone/Formoterol [Dulera 100 2 puff INHALATION RT-BID 10/30/24 10/30/24 History Mcg-5 Mcg Inhaler] traZODone HCL 150 mg PO HS 10/30/24 10/30/24 History Allergies Allergy/AdvReac Type Severity Reaction Status Date / Time carrot Allergy Unknown Verified 10/30/24 12:44 peas Allergy Unknown Verified 10/30/24 12:44 Physical Examination - Vital Signs Vital Signs: Vital Signs Temp Pulse Resp BP Pulse Ox 10/30/24 12:23 84 30 H 90/80 98 10/30/24 11:45 82 10/30/24 11:27 84 10/30/24 10:24 97.6 F 93 40 H 121/70 94 L Intake and Output 10/29/24 10/30/24 10/30/24 22:59 06:59 14:59 Other: Weight 54.885 kg GENERAL: The patient is lying in bed and is not in acute distress. NEUROLOGICAL: Higher mental function: The patient is awake, alert, oriented to self, place and time. Patient is following commands. No aphasia and no neglect. Cranial nerves: The pupils are round, equal and reactive to light and accommodation. Visual lewis are full to confrontation throughout. Extraocular movement is intact no nystagmus is noted. Facial sensation is normal to touch throughout. The facial strength is normal throughout. Hearing is normal bilaterally to hand rub. Tongue is midline and moved [id number] without any difficulty. No dysarthria is noted. Shoulder shrug is normal bilaterally. Motor: The strength is 5 over 5 throughout. Normal tone and bulk. Cerebellum: Normal finger to nose bilaterally. Sensation: Sensation is normal to touch throughout. Reflexes (right/left): 2+ throughout. Plantars are downgoing bilaterally. Results - Laboratory Findings CBC and BMP: 10/30/24 10:32 10/30/24 10:32 Abnormal Lab Findings: Abnormal Labs 10/30/24 10/30/24 10:32 10:32 APTT 21.9 L Glucose 119 H Assessment and Plan Assessment: This is a 69-year-old woman who presented emergency department because of paresthesia of the right upper lower extremity. On examination sensation is normal but clinically patient continues to feel some abnormal sensation over the right side next Paresthesia over the right upper lower extremity that is acute probable acute small stroke and likely lacunar stroke. No IV thrombolytic since NIH of 0 and the risk outweigh the benefit Tachypneic Underlying history of hypertension Emphysema Plan: Patient was given aspirin 325mg once in the ED and was started on aspirin 325 daily. I went down on aspirin from 325 mg daily to 81 and started the patient on Plavix 75 mg daily. Patient was not on any antiplatelet prior to this. Patient was started on Lipitor 40 mg daily by the primary team MRI of the brain, 2D echo, lipid panel, hemoglobin A1c is ordered and pending Continue neurochecks Cardiac monitoring PT OT and CONSTRU[employer] are consulted Will defer the rest of the medical management to primary and other specialist For DVT prophylaxis the patient is on Lovenox. Thank you for the consultation Time with Patient: Greater than 30
--- NOTE | 2024-10-30 15:47 | P.HPIM ---
History of Present Illness H&P Date: 10/30/24 Chief Complaint: rue and rle numbness. Gely is a 69-year-old female with past medical history of COPD, chronic hypoxic respiratory failure on 2 L oxygen. She presents today to the hospital as a code stroke. The patient was in her usual health up until today where she reported that she had numbness over her right upper and right lower extremity. She reports that had happened around 10:00 today. She then presented to the hospital for further evaluation. When she presented to hospital she was hemodynamically stable and was afebrile. She is 94% on her home oxygen. CT brain had revealed no acute process. CT a head and neck had revealed mild calcified atherosclerotic plaques. No significant stenosis aneurysm segment occlusion or vascular malformations. Her symptoms had resolved prior to ER admission. She was determined not to be a candidate for TNK as her NIH stroke scale was 0 She denies any prior history of TIA stroke or coronary artery disease Review of Systems Constitutional: Reports as per HPI Past Medical History Past Medical History: COPD, Hyperlipidemia, Hypertension Additional Past Medical History / Comment(s): "BP has been better, off meds now". History of Any Multi-Drug Resistant Organisms: None Reported Past Surgical History: Breast Surgery Additional Past Surgical History / Comment(s): Breast lumpectomy(can't remember which side), right knee arthroscopy., TRK 03/26/23 Past Anesthesia/Blood Transfusion Reactions: No Reported Reaction Smoking Status: Current every day smoker - Past Family History Mother Family Medical History: Cancer Additional Family Medical History / Comment(s): Lung cancer. Medications and Allergies Home Medications Medication Instructions Recorded Confirmed Type Atorvastatin [Lipitor] 10 mg PO HS 10/30/24 10/30/24 History Brimonidine Tartrate/Timolol 1 drop BOTH EYES BID 10/30/24 10/30/24 History [Combigan 0.2%-0.5% Eye Drops] Ibuprofen [Motrin] 400 mg PO Q8HR PRN 10/30/24 10/30/24 History Ipratropium-Albuterol Nebulize 3 ml INHALATION RT-QID PRN 10/30/24 10/30/24 History [Duoneb 0.5 mg-3 mg/3 ml Soln] Latanoprost [Latanoprost 0.005%] 1 drop BOTH EYES HS 10/30/24 10/30/24 History Mometasone/Formoterol [Dulera 100 2 puff INHALATION RT-BID 10/30/24 10/30/24 History Mcg-5 Mcg Inhaler] traZODone HCL 150 mg PO HS 10/30/24 10/30/24 History Allergies Allergy/AdvReac Type Severity Reaction Status Date / Time carrot Allergy Unknown Verified 10/30/24 12:44 peas Allergy Unknown Verified 10/30/24 12:44 Physical Exam Vitals: Vital Signs Temp Pulse Resp BP Pulse Ox 10/30/24 12:23 84 30 H 90/80 98 10/30/24 11:45 82 10/30/24 11:27 84 10/30/24 10:24 97.6 F 93 40 H 121/70 94 L Intake and Output 10/30/24 10/30/24 10/30/24 06:59 14:59 22:59 Other: Weight 54.885 kg General: Female, appears stated age, pleasant Derm: warm, dry Head: atraumatic, normocephalic, symmetric Eyes: EOMI, no lid lag, anicteric sclera, pupils equal round reactive to light ENT: Nose and ears atraumatic, no thrush, no pharyngeal erythema Neck: No thyromegaly, no cervical lymphadenopathy, trachea midline, supple Mouth: no lip lesion, mucus membranes moist Cardiovascular: S1S2 reg, no murmur, positive posterior tibial pulse bilateral, no edema, capillary refill less than 2 seconds Lungs: clear to ascultation bilateral, no ronchi, no rales, no wheeze, on nasal cannula Abdominal: soft, nontender to palpation, no guarding, no appreciable organomegaly, normal bowel sounds Ext: no gross muscle atrophy, muscle strength muscle strength 5 out of 5 in all 4 extremities, no contractures Neuro: Right upper and right lower extremity motor strength 5 out of 5. Left lower and left upper extremity motor strength 5/5. Gait not tested sensation intact to bilateral upper and lower extremities Psych: Alert, oriented, appropriate affect Results CBC & Chem 7: 10/30/24 10:32 10/30/24 10:32 Labs: Abnormal Lab Results - Last 24 Hours (Table) 10/30/24 10/30/24 Range/Units 10:32 10:32 APTT 21.9 L (22.0-30.0) sec Glucose 119 H (74-99) mg/dL Assessment and Plan Assessment: #) RUE and RLE numbness, probable TIA. r/o cva. continue observation and continue serial neurochecks. awaiting brain mri results and surface echo. telemetry monitoring asa 81 mg daily and clopergriol 75 mg daily x 21 days. continue atrovastatin 40 mg hs #) COPD not in acute excerbation continue home DuoNebs 4 times daily and Symbicort inhaler. Reports prior history of tobacco use. Continue tobacco cessation. Supplemental oxygen to maintain SpO2 greater than 90% Dispo: observation. anticipate d/c home after MRI brain
[2024-10-30] MEDS ORDERED: ALPRAZolam 0.25 MG TAB PO PRN (15:49)
[2024-10-30] MEDS: IPRATROPIUM-ALBUTEROL 3 ML NEB INHALATION PRN (16:13)
[2024-10-30] MEDS: CLOPIDOGREL 75 MG TAB PO SCH (16:27)
--- NOTE | 2024-10-30 18:27 | CA ---
Transthoracic Echo Report Name: Gely Downey Age: 69 Gender: F : 1955 Exam Date: 10/30/2024 15:36 Exam Location: [facility] Ht (in): 63 Wt (lb): 121 Ordering Physician: Saw Tidwell DO Attending/Referring Phys: Industrial Gas Servicer Supervisor Lela Villeda RDCS Procedure CPT: Indications: Thrombus Cardiac Hx: Technical Quality: Good Contrast 1: Total Dose (mL): Contrast 2: Total Dose (mL): MEASUREMENTS (Male / Female) Normal Values 2D ECHO LV Diastolic Diameter PLAX 3.3 cm 4.2 - 5.9 / 3.9 - 5.3 cm LV Systolic Diameter PLAX 2.4 cm IVS Diastolic Thickness 0.9 cm 0.6 - 1.0 / 0.6 - 0.9 cm LVPW Diastolic Thickness 0.9 cm 0.6 - 1.0 / 0.6 - 0.9 cm LV Relative Wall Thickness 0.6 LVOT Diameter 1.8 cm LV Diastolic Volume MOD BP 56.6 cm??? 67 - 155 / 56 - 104 cm??? LV Systolic Volume MOD BP 23.4 cm??? 22 - 58 / 19 - 49 cm??? LV Ejection Fraction MOD BP 58.7 % >= 55 % LV Cardiac Index MOD BP 1635.7 cm???/min???m??? LV Diastolic Volume MOD 4C 47.6 cm??? LV Systolic Volume MOD 4C 23.0 cm??? LV Ejection Fraction MOD 4C 51.8 % LV Cardiac Index MOD 4C 1214.1 cm???/min???m??? LV Diastolic Length 4C 6.4 cm LV Systolic Length 4C 5.3 cm LV Diastolic Volume MOD 2C 61.4 cm??? LV Systolic Volume MOD 2C 21.3 cm??? LV Ejection Fraction MOD 2C 65.3 % LV Cardiac Index MOD 2C 1973.6 cm???/min???m??? LV Diastolic Length 2C 7.0 cm LV Systolic Length 2C 5.9 cm DOPPLER AV Peak Velocity 133.5 cm/s AV Peak Gradient 7.1 mmHg AV Mean Velocity 92.2 cm/s AV Mean Gradient 3.8 mmHg AV Velocity Time Integral 21.1 cm LVOT Peak Velocity 113.5 cm/s LVOT Peak Gradient 5.2 mmHg LVOT Velocity Time Integral 17.8 cm LVOT Stroke Volume 44.5 cm??? LVOT Stroke Volume Index 28.5 ml/m??? LVOT Cardiac Index 2188.9 cm???/min???m??? AV Area Cont Eq vti 2.1 cm??? AV Area Cont Eq pk 2.1 cm??? Mitral E Point Velocity 59.8 cm/s Mitral A Point Velocity 109.3 cm/s Mitral E to A Ratio 0.5 MV Deceleration Time 232.5 ms MV E' Velocity 3.8 cm/s Mitral E to MV E' Ratio 15.6 TR Peak Velocity 246.4 cm/s TR Peak Gradient 24.3 mmHg Right Atrial Pressure 5.0 mmHg Pulmonary Artery Systolic Pressu 29.3 mmHg Right Ventricular Systolic Press 29.3 mmHg FINDINGS Left Ventricle Left ventricular ejection fraction is estimated at 55-60 %. Left ventricular cavity size normal. Left ventricular wall thickness normal. No obvious regional wall motion abnormalities. Right Ventricle Normal right ventricular size and function. Right ventricular systolic pressure within normal limits. Right Atrium Normal right atrial size. Left Atrium Normal left atrial size. Mitral Valve Structurally normal mitral valve. No evidence for mitral valve prolapse. No mitral stenosis. Trace mitral regurgitation. Aortic Valve Trileaflet aortic valve. No aortic valve stenosis or regurgitation. Tricuspid Valve Structurally normal tricuspid valve. No tricuspid stenosis. Mild tricuspid regurgitation. Pulmonic Valve Pulmonic valve not well visualized. Pericardium No pericardial effusion. Aorta Aortic root and proximal ascending aorta not well visualized. CONCLUSIONS Normal biventricular systolic function No significant valvular abnormalities Negative contrast/bubble study Normal aortic root and proximal ascending aorta Previewed by: Dr. Mak Scott MD (Electronically Signed) Final Date: 30 October 2024 18:26
[2024-10-30] MEDS ORDERED: guaiFENesin-DM 100-10MG/5ML 10 ML CUP PO PRN (19:52)
[2024-10-30] MEDS: SYMBICORT 80-4.5 MCG INHALER INHALATION SCH (20:31)
--- NOTE | 2024-10-30 21:31 | MR ---
EXAMINATION TYPE: MR brain wo con DATE OF EXAM: 10/30/2024 COMPARISON: CT brain earlier today HISTORY: Neuro deficit, acute, stroke suspected. TECHNIQUE: Multiplanar, multisequence imaging of the brain and brainstem is performed without IV cont rast. FINDINGS: Diffusion weighted images demonstrate no evidence of a recent infarct or other diffusion abnormality. There is mild to moderate ventricular and sulcal prominence. Some scattered foci of T2 hyperintensity are seen throughout the white matter bilaterally. Midline structures demonstrate normal morphology. The craniocervical junction appears within normal limits. Normal vascular flow voids are present. Bilateral aphakia is present. The paranasal sinuses a re clear. IMPRESSION: 1. No MRI evidence for a recent infarct. 2. Odyv-se-sodffjho diffuse cerebral atrophy and mild chronic small vessel ischemic change is noted. [facility], , 10/30/2024 9:29 PM
[2024-10-30] MEDS: BRIMONIDINE TARTRATE 0.2% DROPS 5 ML BTL BOTH EYES SCH (22:03)
[2024-10-30] MEDS: LATANOPROST 0.005% OPHTH DROPS 2.5 ML BTL BOTH EYES SCH (22:04)
[2024-10-30] MEDS: traZODone HCL 50 MG TAB PO SCH (22:05)
[2024-10-30] MEDS: TIMOLOL 0.5% OPHTH DROPS 5 ML BTL BOTH EYES SCH (22:05)
[2024-10-31 04:16] VITALS: TEMP 98.2
[2024-10-31 07:00] VITALS: BP 114/59; PULSE 80; RESP 16
[2024-10-31] MEDS: ENOXAPARIN 40 MG/0.4 ML SYRINGE SQ SCH (08:45)
[2024-10-31] MEDS: ASPIRIN 81 MG PO SCH (08:45)
[2024-10-31] MEDS: ATORVASTATIN 40 MG TAB PO SCH (08:45)
[2024-10-31] MEDS ORDERED: ASPIRIN 325 MG TAB PO SCH (09:00)
--- NOTE | 2024-10-31 09:14 | P.DS ---
Providers Date of admission: 10/30/24 11:45 Attending physician: Millicent Valencia MD Consults: 10/30/24 11:44 Consult Physician Routine Consulting Provider: Darrell Araujo Consult Reason/Comments: tia Do you want consulting provider notified?: Already Contacted Primary care physician: [facility] Course: Ms. Downey is a 69-year-old female with past medical history of chronic hypoxic respiratory failure and COPD. The patient presented to the hospital on October 30 as a code stroke. She had reported that she was in her usual state of health up until the morning of October 30 where she had right upper extremity and right lower extremity numbness that had occurred at approximately at 1000. She then presented to hospital where she had a CT brain which revealed no acute process CT head and neck revealed mild ossified atherosclerotic plaques. No significant stenosis or aneurysm. She was determined not to be a TNK candidate. She had MRI brain which revealed no acute infarct. She had echocardiogram which revealed a LVEF of 55 to 60% with negative bubble study. She was diagnosed with a TIA and was started on aspirin/clopidogrel and atorvastatin 40 mg nightly. She was then discharged home on October 31. Assessment: #) TIA. Symptoms included right upper extremity and right lower extremity numbness which had resolved prior to presentation to the ER. MRI was negative for CVA. Echocardiogram had revealed a LVEF of 55 to 60% with negative bubble study. Continue aspirin 81 mg daily indefinitely and clopidogrel 75 mg daily x 21 days. In addition she should continue atorvastatin 40 mg daily indefinitely Patient Condition at Discharge: Fair Plan - Discharge Summary New Discharge Prescriptions: New Aspirin EC [Ecotrin Low Dose] 81 mg PO DAILY 30 Days #30 tab Atorvastatin [Lipitor] 40 mg PO DAILY 30 Days #30 tab Clopidogrel [Plavix] 75 mg PO DAILY 19 Days #19 tab Continue traZODone HCL 150 mg PO HS Mometasone/Formoterol [Dulera 100 Mcg-5 Mcg Inhaler] 2 puff INHALATION RT-BID Brimonidine Tartrate/Timolol [Combigan 0.2%-0.5% Eye Drops] 1 drop BOTH EYES BID Ipratropium-Albuterol Nebulize [Duoneb 0.5 mg-3 mg/3 ml Soln] 3 ml INHALATION RT-QID PRN PRN Reason: Shortness Of Breath Latanoprost [Latanoprost 0.005%] 1 drop BOTH EYES HS Discontinued Ibuprofen [Motrin] 400 mg PO Q8HR PRN PRN Reason: Pain Atorvastatin [Lipitor] 10 mg PO HS Discharge Medication List Brimonidine Tartrate/Timolol [Combigan 0.2%-0.5% Eye Drops] 1 drop BOTH EYES BID 10/30/24 [History] Ipratropium-Albuterol Nebulize [Duoneb 0.5 mg-3 mg/3 ml Soln] 3 ml INHALATION RT-QID PRN 10/30/24 [History] Latanoprost [Latanoprost 0.005%] 1 drop BOTH EYES HS 10/30/24 [History] Mometasone/Formoterol [Dulera 100 Mcg-5 Mcg Inhaler] 2 puff INHALATION RT-BID 10/30/24 [History] traZODone HCL 150 mg PO HS 10/30/24 [History] Aspirin EC [Ecotrin Low Dose] 81 mg PO DAILY 30 Days #30 tab 10/31/24 [Rx] Atorvastatin [Lipitor] 40 mg PO DAILY 30 Days #30 tab 10/31/24 [Rx] Clopidogrel [Plavix] 75 mg PO DAILY 19 Days #19 tab 10/31/24 [Rx] Follow up Appointment(s)/Referral(s): [facility],Clinic [Primary Care Provider] - 1-2 days Discharge Disposition: HOME SELF-CARE
[2024-10-31 10:36] LABS: Chol/HDL Ratio 3.71 Ratio; LDL Cholesterol,Calculated 117.2 mg/dL (0.0-131.0); VLDL Calculation 18.68 mg/dL (5.00-40.00)
== END 2024-10-31 10:46 | disposition home or self-care (01) ==
LOC: EC 10:22 → 1SOBS 11:45 → 6NMEDSUR 18:09 → 3SCARD 20:43
PROVIDERS: ADMIT Internal Medicine; ATTEND Internal Medicine
DX: R20.0 Anesthesia of skin (principal); R20.2 Paresthesia of skin; J43.9 Emphysema, unspecified; J96.11 Chronic respiratory failure with hypoxia; E78.5 Hyperlipidemia, unspecified; I10 Essential (primary) hypertension; F17.200 Nicotine dependence, unspecified, uncomplicated; Z79.51 Long term (current) use of inhaled steroids; Z79.899 Other long term (current) drug therapy
CPT/HCPCS: 96372; 99291; 36415; 94640 ×3; 94760; 93005; 93306; 80061; 80053; 82550; 85025; 85610; 85730; 83036; 71046; 70496; 70450; 70498; 70551; G0378 ×3; J1650; Q9967

== ENCOUNTER 2024-11-17 13:07 | Emergency (ER) | payer OTHER ==
[2024-11-17 13:44] VITALS: PULSE 78
--- NOTE | 2024-11-17 14:56 | ED ---
Wound/Laceration HPI - General Chief Complaint: Wound/Laceration Stated Complaint: R hand lac Time Seen by Provider: 11/17/24 13:21 Source: patient, RN notes reviewed Mode of arrival: ambulatory Limitations: no limitations - History of Present Illness Initial Comments: This is a 69-year-old female presenting with finger laceration occurring last night at 1999. Patient states she was reaching under a chair when a metal fragment cut into her right ring finger causing significant bleeding due to recent start of blood thinners following TIA on 10/30/2024. Patient states she initially went to [facility] urgent care but was deferred to the ER after they noted "arterial bleeding". Patient states tetanus vaccination status is unknown. Denies other injuries, dizziness, AMS, ALOC, vision changes. Onset/Timin -: hour(s) Time: 20:00 Extremity Location: Right: Hand - Related Data Home Medications Medication Instructions Recorded Confirmed Brimonidine Tartrate/Timolol 1 drop BOTH EYES BID 10/30/24 10/30/24 [Combigan 0.2%-0.5% Eye Drops] Ipratropium-Albuterol Nebulize 3 ml INHALATION RT-QID PRN 10/30/24 10/30/24 [Duoneb 0.5 mg-3 mg/3 ml Soln] Latanoprost [Latanoprost 0.005%] 1 drop BOTH EYES HS 10/30/24 10/30/24 Mometasone/Formoterol [Dulera 100 2 puff INHALATION RT-BID 10/30/24 10/30/24 Mcg-5 Mcg Inhaler] traZODone HCL 150 mg PO HS 10/30/24 10/30/24 Previous Rx's Medication Instructions Recorded Aspirin EC [Ecotrin Low Dose] 81 mg PO DAILY 30 Days #30 tab 10/31/24 Atorvastatin [Lipitor] 40 mg PO DAILY 30 Days #30 tab 10/31/24 Clopidogrel [Plavix] 75 mg PO DAILY 19 Days #19 tab 10/31/24 Bacitracin/Polymyx Oint 1 applic TOPICAL BID #22 gm 11/17/24 [Polysporin Oint] Cephalexin [Keflex] 500 mg PO Q6HR 5 Days #20 cap 11/17/24 Allergies Allergy/AdvReac Type Severity Reaction Status Date / Time carrot Allergy Unknown Verified 11/17/24 13:44 peas Allergy Unknown Verified 11/17/24 13:44 Review of Systems ROS Statement: Those systems with pertinent positive or pertinent negative responses have been documented in the HPI. ROS Other: All systems not noted in ROS Statement are negative. Past Medical History Past Medical History: COPD, Hyperlipidemia, Hypertension Additional Past Medical History / Comment(s): "BP has been better, off meds now". History of Any Multi-Drug Resistant Organisms: None Reported Past Surgical History: Breast Surgery Additional Past Surgical History / Comment(s): Breast lumpectomy(can't remember which side), right knee arthroscopy., TRK 03/26/23, TIA Past Anesthesia/Blood Transfusion Reactions: No Reported Reaction Past Psychological History: No Psychological Hx Reported Smoking Status: Current every day smoker - Past Family History Mother Family Medical History: Cancer Additional Family Medical History / Comment(s): Lung cancer. General Exam Limitations: no limitations General appearance: alert, in no apparent distress Head exam: Present: atraumatic, normocephalic, normal inspection Eye exam: Present: normal appearance, PERRL, EOMI. Absent: scleral icterus, conjunctival injection, periorbital swelling ENT exam: Present: normal exam, mucous membranes moist Neck exam: Present: normal inspection. Absent: tenderness, meningismus, lymphadenopathy Respiratory exam: Present: normal lung sounds bilaterally. Absent: respiratory distress, wheezes, rales, rhonchi, stridor Cardiovascular Exam: Present: regular rate, normal rhythm, normal heart sounds. Absent: systolic murmur, diastolic murmur, rubs, gallop, clicks GI/Abdominal exam: Present: soft, normal bowel sounds. Absent: distended, tenderness, guarding, rebound, rigid Extremities exam: Present: full ROM, normal capillary refill, other (Jagged 6 cm vertical laceration on right ring finger palmar aspect extending from distal phalange past MCP joint. Distal neurovascular and motor function intact, capillary refill less than 2 seconds.). Absent: tenderness, pedal edema, joint swelling, calf tenderness Back exam: Present: normal inspection Neurological exam: Present: alert, oriented X3, CN II-XII intact Psychiatric exam: Present: normal affect, normal mood Skin exam: Present: warm, dry, intact, normal color. Absent: rash Course Vital Signs 11/17/24 11/17/24 13:41 16:44 Temperature 98.9 F 98.4 F Pulse Rate 78 78 Respiratory 20 18 Rate Blood Pressure 139/79 131/86 O2 Sat by Pulse 97 97 Oximetry Procedures - Laceration Laceration #1 Consent Obtained: verbal consent Indication: laceration Site: hand Size (cm): 6 Description: stellate, irregular Depth: simple, single layer Anesthetic Used: lidocaine 1% Anesthesia Technique: nerve block Pre-repair: wound explored, irrigated extensively Type of Sutures: other Additional Comments: Laceration found to be too shallow, and finger to edematous to apply sutures following digital block and irrigation. Steri-Strips placed and finger wrapped in Kerlix gauze roll from distal to proximal aspects. Medical Decision Making - Medical Decision Making Was pt. sent in by a medical professional or institution ( PA, SOFTWARE DESIGNER, urgent care, hospital, or halfway...) When possible be specific @ -[No] Did you speak to anyone other than the patient for history (EMS, parent, family, police, friend...)? What history was obtained from this source @ -[No] Did you review nursing and triage notes (agree or disagree)? Why? @ -[I reviewed and agree with nursing and triage notes] Were old charts reviewed (outside hosp., previous admission, EMS record, old EKG, old radiological studies, urgent care reports/EKG's, halfway records)? Report findings @ -[No old charts were reviewed] Differential Diagnosis (chest pain, altered mental status, abdominal pain women, abdominal pain men, vaginal bleeding, weakness, fever, dyspnea, syncope, headache, dizziness, GI bleed, back pain, seizure, CVA, palpatations, mental health, musculoskeletal)? @ -Laceration, cellulitis, abscess, retained foreign body, fracture, dislocation EKG interpreted by me (3pts min.). @ -Not done X-rays interpreted by me (1pt min.). @ -[None done] CT interpreted by me (1pt min.). @ -[None done] U/S interpreted by me (1pt. min.). @ -[None done] What testing was considered but not performed or refused? (CT, X-rays, U/S, labs)? Why? @ -[None] What meds were considered but not given or refused? Why? @ -Due to shallowness of laceration and edema preventing alignment of edges, suturing deferred Did you discuss the management of the patient with other professionals (professionals i.e. , PA, SOFTWARE DESIGNER, lab, RT, psych nurse, social services manager, earth observations chief scientist, teacher, credit or loans officer, director of casework services)? Give summary @ -[No] Was smoking cessation discussed for >3mins.? @ -[No] Was critical care preformed (if so, how long)? @ -[No] Were there social determinants of health that impacted care today? How? (Homelessness, low income, unemployed, alcoholism, drug addiction, transportation, low edu. Level, literacy, decrease access to med. care, penitentiary, rehab)? @ -[No] Was there de-escalation of care discussed even if they declined (Discuss DNR or withdrawal of care, Hospice)? DNR status @ -[No] What co-morbidities impacted this encounter? (DM, HTN, Smoking, COPD, CAD, Cancer, CVA, ARF, Chemo, Hep., AIDS, mental health diagnosis, sleep apnea, morbid obesity)? @ -[None] Was patient admitted / discharged? Hospital course, mention meds given and route, prescriptions, significant lab abnormalities, going to OR and other pertinent info. @ -Tdap vaccination provided. Digital block performed of affected finger with anesthesia noted by patient. Copious irrigation of the laceration reveals fairly shallow laceration with digital edema likely due to subcutaneous hemorrhaging, laceration edges and preventing alignment. Due to shallowness of laceration and edema preventing alignment of edges, suturing deferred and Steri-Strips placed across laceration and finger wrapped in Kerlix gauze to stem further subcutaneous hemorrhaging. Advised to leave Kerlix gauze on for remainder of day and remove prior to bedtime. Advised wrap again in the morning and keep laceration clean with antibacterial soap and water. Prophylactic p.o. Keflex sent to patient's pharmacy. Undiagnosed new problem with uncertain prognosis? @ -[No] Drug Therapy requiring intensive monitoring for toxicity (Heparin, Nitro, Insulin, Cardizem)? @ -[No] Were any procedures done? @ -[No] Diagnosis/symptom? @ -Finger laceration Acute, or Chronic, or Acute on Chronic? @ -Acute Uncomplicated (without systemic symptoms) or Complicated (systemic symptoms)? @ -Uncomplicated Side effects of treatment? @ -[No] Exacerbation, Progression, or Severe Exacerbation? @ -[No] Poses a threat to life or bodily function? How? (Chest pain, [place], [place], pneumonia, PE, COPD, DKA, ARF, appy, cholecystitis, CVA, Diverticulitis, Homicidal, Suicidal, threat to staff... and all critical care pts) @ -[No] Disposition Clinical Impression: Laceration Disposition: HOME SELF-CARE Condition: Good Instructions (If sedation given, give patient instructions): Acute Wound Care (ED) Prescriptions: Cephalexin [Keflex] 500 mg PO Q6HR 5 Days #20 cap Bacitracin/Polymyx Oint [Polysporin Oint] 1 applic TOPICAL BID #22 gm Is patient prescribed a controlled substance at d/c from ED?: No Referrals: [facility],Clinic [Primary Care Provider] - 1-2 days Time of Disposition: 16:34
[2024-11-17] MEDS: LIDOCAINE 1% INJ 10MG/ML (20 ML MDV) SQ ONE (15:05)
[2024-11-17] MEDS: DIPH,PERTUS(ACELL)TETVAC-LF 0.5 ML VIAL IM ONE (15:06)
[2024-11-17 17:16] VITALS: BP 131/86; RESP 18; TEMP 98.4
== END 2024-11-17 20:25 | disposition home or self-care (01) ==
LOC: EC 13:07
DX: S61.214A Laceration without foreign body of right ring finger without damage to nail, initial encounter (principal); F17.200 Nicotine dependence, unspecified, uncomplicated; Z91.018 Allergy to other foods; Z23 Encounter for immunization; W45.8XXA Other foreign body or object entering through skin, initial encounter
CPT/HCPCS: 99283; 12002; 90471; 90715; J2003

== ENCOUNTER → 2024-12-25 | Outpatient (CLI) | payer OTHER ==
--- NOTE | 2024-12-25 13:24 | MM ---
Reason for Exam: Screening (asymptomatic). Last mammogram was performed 1 year(s) and 1 month(s) ago. Patient History: Menarche at age 12. First Full-Term at age 21. Postmenopausal. Risk Values: Daxa 5 year model risk: 1.5%. NCI Lifetime model risk: 4.8%. Prior Study Comparison: 10/03/2021 Bilateral Screening Mammogram, [facility]. 10/30/2023 Bilateral MG 3D screening mammo w/cad, [facility]. 11/08/2023 Left MG 3D work up w/cad LT, [facility]. Tissue Density: There are scattered areas of fibroglandular density. Findings: Analyzed By CAD. Right breast: There is no suspicious group of microcalcifications or new suspicious mass. Left breast: There is no suspicious group of microcalcifications or new suspicious mass. Overall Assessment: Negative, BI-RAD 1 Management: Screening Mammogram of both breasts in [address] [facility] will attempt to contact patient to return for supplemental views and ultrasound if indicated. Patient should continue monthly self-breast exams. A clinical breast exam by your physician is recommended on an annual basis. This exam should not preclude additional follow-up of suspicious palpable abnormalities. Note on Daxa scores and lifetime risk: 1. A Daxa score greater than 3% is considered moderate risk. If this is the case, consider specialist referral to assess eligibility for a risk reducing agent. 2. If overall lifetime risk for the development of breast cancer is 20% or higher, the patient may qualify for future screening with alternating mammogram and breast MRI. [facility], , 12/25/2024 1:20 PM. Electronically signed and approved by: Amadeo Nguyen DO
== END | disposition home or self-care (01) ==
LOC: RADMAMWWP 12:32
PROVIDERS: ATTEND Family Medicine
DX: Z12.31 Encounter for screening mammogram for malignant neoplasm of breast (principal); R92.323 Mammographic fibroglandular density, bilateral breasts; Z78.0 Asymptomatic menopausal state
CPT/HCPCS: 77063; 77067

== ENCOUNTER → 2025-05-12 | Outpatient (CLI) | payer OTHER ==
--- NOTE | 2025-05-12 12:51 | CA ---
Lexiscan Nuclear Stress Test Report Name: Gely Downey Exam Date: 05/12/2025 09:51 Exam Location: [place] [facility] Ht (in): 63 Wt (lb): 123 BSA: 1.57 Ordering Phys: Tom Madrid DO Referring Phys: Kimberley Schneider PAC Technologist: GISELLA Age: 69 Gender: F : 1955 Procedure CPT: Indications: I25.84 CAD ICD-10 Codes: Patient History: CP, LEANN, CVA, QUIT TOB 4 Y/A, HIGH CHOL, COPD EMPH. Medications: TRAZADONE, ATOROVASTATIN, IBUPROFEN, ASA. Meds past 24 hrs: Pretest Chest Pain: STRESS TEST Lexiscan Protocol Exercise Duration (min:sec): 02:[address] Depressions (mm): Angina Score: Nunez Score: Resting HR (bpm): 62 Peak HR (bpm): 83 Resting BP (mmHg): 141 / 79 Peak BP (mmHg): 128 / 58 MPHR: 151 Target HR: 128 % MPHR: 55 METS: 1.0 Total Dose: Peak Dose: Atropine: Double Product: 70227 BP Response: Stress Termination: INFUSION COMPLETE Stress Symptoms: NO SYMPTOMS Stress Summary: ECG ANALYSIS Resting ECG: Stress ECG: CONCLUSIONS Nondiagnostic stress test Dr. Mak Scott MD (Electronically Signed) Final Date: 12 May 2025 12:50
--- NOTE | 2025-05-13 13:36 | NM ---
EXAMINATION TYPE: NM stress lexiscan cardiolite DATE OF EXAM: 05/13/2025 COMPARISON: NONE CLINICAL INDICATION: Female, 69 years old with history of I25.84 CAD; TECHNIQUE: After the intravenous administration of 9.7 mCi Tc 99m Sestamibi - Cardiolite resting SPE CT images acquired 75 minutes post injection. The patient received 0.4mg Lexiscan, 25.5 mCi Tc 99m Sestamibi - Stress images obtained [address] injection FINDINGS: Review of stress and rest SPECT images demonstrates fixed perfusion defect mid to basal septal wall, likely attenuation artifact. No distinct reversibility is seen. Gated analysis shows normal wall darryn on with an estimated left ventricular ejection fraction of 74 %. TID calculated normal at 0.96. IMPRESSION: Fixed defect mid to basal wall and septal wall probably attenuation artifact. Findings may also be se en with old infarct. Clinically correlate. No scintigraphic evidence for reversible ischemia. [facility], , 05/13/2025 1:34 PM
== END | disposition home or self-care (01) ==
LOC: RADNMMAIN 07:48
PROVIDERS: ATTEND Family Medicine
DX: I25.84 Coronary atherosclerosis due to calcified coronary lesion (principal)
CPT/HCPCS: 93017; 78452; A9500